=== PATIENT | female | born 1960 | race Caucasian/White ===

== ENCOUNTER 2017-02-03 23:10 | Observation (INO) ==
[2017-02-03] MEDS ORDERED: 0.9 % Sodium Chloride 1,000 ML IVC ONE (23:14)
[2017-02-04 00:46] LABS: Bilirubin,Urine Small (Negative); Blood,Urine Negative (Negative); Color,Urine Yellow (Yellow); Glucose,Urine (UA) Normal (Normal); Ketones,Urine Negative (Negative); Leukocyte Esterase,Urine Negative (Negative); Nitrite,Urine Negative (Negative); PH,Urine 5.5 pH Units (5.0-8.0); Protein,Urine Trace mg/dL (Neg-Trace); Specific Gravity,Urine 1.024 (1.010-1.025); Urobilinogen,Urine Normal (Normal)
[2017-02-04 00:46] LABS: Basophils % 0.3 %; Eosinophils # 0.3 K/mcL (0.0-0.6); Eosinophils % 2.1 %; Hemoglobin 10.7 g/dL (11.5-15.4); Immature Granulocytes % 0.6 % (0-4); Lymphocytes # 2.5 K/mcL (0.6-4.6); Lymphocytes % 20.9 %; Mean Corpuscular HGB Conc 34.5 g/dL (31.6-35.5); Mean Corpuscular Hemoglobin 32.5 pg (28.0-33.3); Mean Corpuscular Volume 94.2 fL (83.0-100.0); Mean Platelet Volume 9.1 fL (9.4-12.4); Monocytes # 1.1 K/mcL (0.0-1.3); Monocytes % 9.2 %; Platelet Count 421 K/mcL (140-400); Red Blood Count 3.29 M/mcL (3.82-4.97); Red Cell Distribution Width 12.8 % (11.5-14.5); Segmented Neutrophils % 66.9 %
[2017-02-04 00:48] LABS: Bacteria,Urine Few per hpf (None-Few); Hyaline Casts,Urine Few per lpf (None-Few); Squamous Epithelial Cell,Urine Many per lpf (None-Few)
[2017-02-04 00:49] LABS: Clarity,Urine Hazy (Clear)
[2017-02-04 00:58] LABS: Calcium 8.4 mg/dL (8.6-10.3); Potassium 2.6 mEq/L (3.5-5.1)
[2017-02-04] MEDS ORDERED: *HR* HYDROmorphone (PF) 1 MG/ML SYRINGE IVP ONE (01:28)
--- NOTE | 2017-02-04 01:49 | Emergency Department Note ---
Disposition Clinical Impression: Syncope, Hypokalemia Disposition: Admitted As Inpatient Time of Disposition: 03:12 Syncope HPI - General Chief Complaint: ED Syncope Stated Complaint: syncope Time Seen by Provider: 02/03/17 23:14 Source: patient, EMS Limitations: no limitations Nursing Notes Reviewed: Yes Vital Signs Reviewed: Yes - History of Present Illness HPI Narrative: Patient presents to the ED via EMS and was seen and evaluated immediately upon arrival. Patient is about a week status post cervical decompression for central canal stenosis with Dr. Beyer. States that she has been doing well postoperatively until today when she was standing at the kitchen sink washing her dishes and collapsed. She had no preceding or post syncopal symptoms. Family member was present and caught her so she did not completely fall. States that she did get pale but not diaphoretic. She did not have any chest pain or dizziness before or after. Upon EMS arrival, blood pressure was 70 systolic. He responded well to a fluid bolus initially and the ED. Complaining of having a flushing feeling in her head and neck at times, especially when she stands up too fast. Denies any chest pain or shortness of breath. No abdominal pain or vomiting. She does have some weakness in her upper extremities that has been ongoing since her surgery, but is improving. This is also present prior to her surgery and the reason she had her surgery. Also complaining of intermittent headaches and been ongoing as well. No acute change from baseline - Related Data Home Medications Medication Instructions Recorded Confirmed ALPRAZolam [Xanax 1 MG Tablet] 2 tab PO QID PRN 01/27/17 02/04/17 Atenolol [Tenormin] 50 mg PO BID 01/27/17 02/04/17 Enalapril/Hydrochlorothiazide 1 tab PO DAILY 01/27/17 02/04/17 [Enalapril-Hctz 5-12.5 mg Tab] Hydrocodone/Chlorphen P-Stirex 5 ml PO BID 01/27/17 02/04/17 [Tussionex Pennkinetic Susp] Lidocaine Patch [Lidoderm 5% patch] 1 patch TP DAILY 01/27/17 02/04/17 Omeprazole [PriLOSEC] 40 mg PO BID 01/27/17 02/04/17 Sertraline [Zoloft] 100 mg PO DAILY 01/27/17 02/04/17 Tramadol HCl [Ultram] 50 mg PO QID PRN 01/27/17 02/04/17 hydrOXYzine pamoate [Hydroxyzine 25 mg PO HS PRN 01/27/17 02/04/17 Pamoate] Previous Rx's Medication Instructions Recorded OxyCODONE Immed Rel [Roxicodone 5 5 mg PO Q4HR #30 tablet 01/28/17 MG] Allergies Allergy/AdvReac Type Severity Reaction Status Date / Time hydrocodone [From Vicodin] AdvReac Itching Unverified 01/27/17 10:54 Oxycodone [From Percocet] AdvReac Itching Unverified 01/27/17 10:54 All systems ED: reviewed and negative except as stated. Constitutional: Denies: fever Eyes: Denies: vision change Cardiovascular: Reports: syncope. Denies: chest pain Respiratory: Denies: dyspnea Neurological: Reports: headache, weakness Endocrine: Reports: fatigue Past Medical History - Past Medical History Attestation: Yes The following information was validated with the patient. Source: patient Medical history: Reports: hypertension Surgical history: Reports: cholecystectomy, other Psychiatric history: Reports: anxiety, depression - Social History Smoking Status: Current every day smoker Smokeless Tobacco Status: No Alcohol use: Reports: none Drug use: Reports: none Physical Exam - General Limitations: no limitations General appearance: alert, in no apparent distress - Head Head exam: atraumatic, normocephalic, normal inspection - Eye Eye exam: Present: normal appearance, PERRL, EOMI - ENT ENT exam: normal exam, normal oropharynx, mucous membranes moist - Neck Neck exam: Present: other (Well-healing anterior approach cervical decompression incision with no signs of infection or drainage, expected postop tenderness) - Chest Chest inspection: Present: normal inspection, symmetric chest wall rise - Respiratory Respiratory exam: Present: normal lung sounds bilaterally - Cardiovascular Cardiovascular exam: Present: regular rate, normal rhythm, normal heart sounds - Abdominal Exam Abdominal exam: Present: soft, Non-Tender. Absent: tenderness, distention, guarding, rebound, rigidity - Extremities Exam Extremities exam: Present: normal inspection, full ROM. Absent: tenderness, pedal edema - Neurological Exam Neurological exam: Present: alert, oriented X3, CN II-XII intact - Expanded Neurological Exam Patient oriented to: Present: person, place, time Speech: Present: fluid speech Motor strength - LUE: 5/5 Motor strength - RUE: 5/5 Motor strength - LLE: 5/5 Motor strength - RLE: 5/5 Upper motor neuron exam: gege neglect: Absent bilaterally Sensory exam upper extremity: light touch: Normal Sensory exam lower extremity: light touch: Normal Coma Scale Eye Opening: Spontaneous Coma Scale Motor Response: Obeys Commands Coma Scale Verbal Response: Oriented Coma Scale Total: 15 - Psychiatric Psychiatric exam: Present: normal affect, normal mood - Skin Skin exam: Present: warm, dry, intact, normal color Course Course Narrative: Patient presenting with syncope and hypotension. We will workup and admit Patient's workup is back and she does not want to stay. Will discuss with family and strongly recommend admission - Reevaluation(s) Reevaluation #1: Patient's labs are back. She is slightly hypokalemic. Chest x-ray is normal. Mental status is normal. After family discussion, they did convince her to stay. We will admit her to the hospital service. Patient stable. Vital Signs Temperature 98.4 F 02/03/17 23:11 Pulse Rate 64 02/03/17 23:11 Respiratory Rate 18 02/03/17 23:11 Blood Pressure 106/55 02/03/17 23:11 O2 Sat by Pulse Oximetry 100 02/03/17 23:11 Temperature 98.4 F 02/03/17 23:11 Pulse Rate 65 02/04/17 03:33 Respiratory Rate 66 02/04/17 03:33 Blood Pressure 105/59 02/04/17 03:33 O2 Sat by Pulse Oximetry 98 02/04/17 03:33 Oxygen Delivery Oxygen Delivery Room Air Syncope - Medical Records Medical records reviewed: Yes I reviewed the patient's medical records. - Lab Data Lab results reviewed: Yes I reviewed the patient's lab results. Result diagrams: 02/04/17 00:39 02/04/17 00:39 Lab Results 02/04/17 02/04/17 02/04/17 Range/Units 00:01 00:15 00:39 WBC 11.9 H (4.3-11.1) K/mcL RBC 3.29 L (3.82-4.97) M/mcL Hgb 10.7 L (11.5-15.4) g/dL Hct 31.0 L (35.3-44.9) % MCV 94.2 (83.0-100.0) fL MCH 32.5 (28.0-33.3) pg MCHC 34.5 (31.6-35.5) g/dL RDW 12.8 (11.5-14.5) % Plt Count 421 H (140-400) K/mcL MPV 9.1 L (9.4-12.4) fL Immature Gran % 0.6 (0-4) % Seg Neutrophils % 66.9 % Lymphocytes % 20.9 % Monocytes % 9.2 % Eosinophils % 2.1 % Basophils % 0.3 % Neutrophils # 8.0 (1.6-8.9) K/mcL Lymphocytes # 2.5 (0.6-4.6) K/mcL Monocytes # 1.1 (0.0-1.3) K/mcL Eosinophils # 0.3 (0.0-0.6) K/mcL Basophils # 0.0 (0.0-0.2) K/mcL Immature Plt Fraction 2.0 (1.1-6.1) % PT (9.4-12.1) Seconds INR APTT (26.0-36.0) Seconds Sodium (136-145) mEq/L Potassium (3.5-5.1) mEq/L Chloride (98-107) mEq/L Carbon Dioxide (23-29) mEq/L BUN (6-20) mg/dL Creatinine (0.60-1.20) mg/dL Est GFR ( Amer) (> 60) Est GFR (Non-Af Amer) (> 60) BUN/Creatinine Ratio (6-26) Glucose (70-105) mg/dL Calculated Osmolality (280-300) Lactic Acid (0.5-2.2) mmol/L Calcium (8.6-10.3) mg/dL Troponin I (< 0.04) ng/mL Urine Color Yellow (Yellow) Urine Clarity Hazy A (Clear) Urine pH 5.5 (5.0-8.0) pH Units Ur Specific [place] 1.024 (1.010-1.025) Urine Protein Trace (Neg-Trace) mg/dL Urine Glucose (UA) Normal (Normal) mg/dL Urine Ketones Negative (Negative) mg/dL Urine Blood Negative (Negative) Urine Nitrite Negative (Negative) Urine Bilirubin Small H (Negative) Urine Urobilinogen Normal (Normal) mg/dL Ur Leukocyte Esterase Negative (Negative) Urine Microscopic RBC 5-15 H (0-3) per hpf Ur Squamous Epith Cells Many H (None-Few) per lpf Urine Bacteria Few (None-Few) per hpf Hyaline Casts Few (None-Few) per lpf Specimen Rejected Miscellaneous 02/04/17 02/04/17 02/04/17 Range/Units 00:39 00:39 00:39 WBC (4.3-11.1) K/mcL RBC (3.82-4.97) M/mcL Hgb (11.5-15.4) g/dL Hct (35.3-44.9) % MCV (83.0-100.0) fL MCH (28.0-33.3) pg MCHC (31.6-35.5) g/dL RDW (11.5-14.5) % Plt Count (140-400) K/mcL MPV (9.4-12.4) fL Immature Gran % (0-4) % Seg Neutrophils % % Lymphocytes % % Monocytes % % Eosinophils % % Basophils % % Neutrophils # (1.6-8.9) K/mcL Lymphocytes # (0.6-4.6) K/mcL Monocytes # (0.0-1.3) K/mcL Eosinophils # (0.0-0.6) K/mcL Basophils # (0.0-0.2) K/mcL Immature Plt Fraction (1.1-6.1) % PT 13.1 H (9.4-12.1) Seconds INR 1.2 APTT 23.1 L (26.0-36.0) Seconds Sodium 138 (136-145) mEq/L Potassium 2.6 L (3.5-5.1) mEq/L Chloride 102 (98-107) mEq/L Carbon Dioxide 23 (23-29) mEq/L BUN 17 (6-20) mg/dL Creatinine 1.34 H (0.60-1.20) mg/dL Est GFR ( Amer) 49 L (> 60) Est GFR (Non-Af Amer) 41 L (> 60) BUN/Creatinine Ratio 13 (6-26) Glucose 117 H (70-105) mg/dL Calculated Osmolality 289 (280-300) Lactic Acid 1.0 (0.5-2.2) mmol/L Calcium 8.4 L (8.6-10.3) mg/dL Troponin I (< 0.04) ng/mL Urine Color (Yellow) Urine Clarity (Clear) Urine pH (5.0-8.0) pH Units Ur Specific [place] (1.010-1.025) Urine Protein (Neg-Trace) mg/dL Urine Glucose (UA) (Normal) mg/dL Urine Ketones (Negative) mg/dL Urine Blood (Negative) Urine Nitrite (Negative) Urine Bilirubin (Negative) Urine Urobilinogen (Normal) mg/dL Ur Leukocyte Esterase (Negative) Urine Microscopic RBC (0-3) per hpf Ur Squamous Epith Cells (None-Few) per lpf Urine Bacteria (None-Few) per hpf Hyaline Casts (None-Few) per lpf Specimen Rejected 02/04/17 Range/Units 00:39 WBC (4.3-11.1) K/mcL RBC (3.82-4.97) M/mcL Hgb (11.5-15.4) g/dL Hct (35.3-44.9) % MCV (83.0-100.0) fL MCH (28.0-33.3) pg MCHC (31.6-35.5) g/dL RDW (11.5-14.5) % Plt Count (140-400) K/mcL MPV (9.4-12.4) fL Immature Gran % (0-4) % Seg Neutrophils % % Lymphocytes % % Monocytes % % Eosinophils % % Basophils % % Neutrophils # (1.6-8.9) K/mcL Lymphocytes # (0.6-4.6) K/mcL Monocytes # (0.0-1.3) K/mcL Eosinophils # (0.0-0.6) K/mcL Basophils # (0.0-0.2) K/mcL Immature Plt Fraction (1.1-6.1) % PT (9.4-12.1) Seconds INR APTT (26.0-36.0) Seconds Sodium (136-145) mEq/L Potassium (3.5-5.1) mEq/L Chloride (98-107) mEq/L Carbon Dioxide (23-29) mEq/L BUN (6-20) mg/dL Creatinine (0.60-1.20) mg/dL Est GFR ( Amer) (> 60) Est GFR (Non-Af Amer) (> 60) BUN/Creatinine Ratio (6-26) Glucose (70-105) mg/dL Calculated Osmolality (280-300) Lactic Acid (0.5-2.2) mmol/L Calcium (8.6-10.3) mg/dL Troponin I < 0.03 (< 0.04) ng/mL Urine Color (Yellow) Urine Clarity (Clear) Urine pH (5.0-8.0) pH Units Ur Specific [place] (1.010-1.025) Urine Protein (Neg-Trace) mg/dL Urine Glucose (UA) (Normal) mg/dL Urine Ketones (Negative) mg/dL Urine Blood (Negative) Urine Nitrite (Negative) Urine Bilirubin (Negative) Urine Urobilinogen (Normal) mg/dL Ur Leukocyte Esterase (Negative) Urine Microscopic RBC (0-3) per hpf Ur Squamous Epith Cells (None-Few) per lpf Urine Bacteria (None-Few) per hpf Hyaline Casts (None-Few) per lpf Specimen Rejected - Radiology Data Radiology results reviewed: Yes I reviewed the patient's radiology results. - EKG Data EKG attestation: Yes I reviewed and interpreted this EKG. EKG results narrative: Sinus rhythm, rate 63, AR interval 203, QRS 108, QTC 472, borderline left axis deviation, borderline prolonged QT interval. No acute ischemic changes Attestation Statement - Attestation Attestation: I, Jack Islas MD, personally evaluated this patient and discussed their management with the resident physician. I reviewed the resident's note and agree with the documented findings, medical decision making, and plan of care. 56-year-old female presents to the emergency department with a complaint of a syncopal episode shortly prior to arrival. Patient was standing at the sink washing dishes when she had a sudden loss of consciousness. Patient had what she describes as a head phillips and she leaned over leaning on the sink and then stood up. Daughter was right beside her and states that when she stood up she became very pale and her eyes rolled back in her head and she collapsed. Daughter caught her and lowered her to the floor. She did not fall or injure herself. Patient is one week status post cervical spine surgery. She denies any chest pain or palpitations. She does not remember the incident. Family reports that she was completely unresponsive for at least 2 minutes and then seemed confused and disoriented for about 10 or 15 minutes. On examination patient is a well-developed well-nourished female in no acute distress. She is alert and oriented 3. There is no cyanosis or diaphoresis. Rest sounds are clear and equal bilaterally. Heart regular rate and rhythm. Abdomen is soft and nontender with normal bowel sounds. No gross focal neurological deficits. Labs reviewed. Hypokalemia. Chest x-ray negative. EKG shows a normal sinus rhythm. She does have prolonged QT. No arrhythmias on the cardiac catheterization technician. The emergency department. The hospitalist, Dr. Hayden, was consulted and accepted admission of the patient.
[2017-02-04 02:18] LABS: Activated Partial Thrombo Time 23.1 Seconds (26.0-36.0); INR 1.2; Prothrombin Time 13.1 Seconds (9.4-12.1)
[2017-02-04] MEDS ORDERED: Nicotine 21 MG PATCH.TD24 TD STA (03:13)
[2017-02-04] MEDS ORDERED: Naloxone 0.4 MG/ML INJ IVP PRN (08:33)
--- NOTE | 2017-02-04 08:41 | Internal Med History&Physical ---
Date of Encounter: 02/08/17 Time of Encounter: 08:40 Assessment and Plan (1) Syncope Status: Acute 56/female Multiple comorbidities. Admitted with syncopal episode. Has a recent surgery for cervical spine. Total down time was less than 3 minutes. She is aware of the surrounding during the syncopal episode. Plan: Admit as observation. IV fluids normal saline 70 mL per hour. Noted that potassium was replaced. We will recheck labs. We will get CT head without contrast as patient had a vigorous head movements during this episode Decision regarding imaging of the spine: As per spine surgery. We will get physical therapy/occupational therapy evaluation. I spoke to Dr. Beyer who has done surgery one week back as per the patient's request. Qualifiers: Syncope type: unspecified Qualified Code(s): R55 - Syncope and collapse (2) Hypokalemia Status: Acute Potassium replaced. We will follow labs (3) Cervical stenosis of spinal canal Status: Chronic Status post surgery for cervical stenosis of the spinal canal. The surgery was done one week ago. (4) DVT prophylaxis Status: Acute Internal Medicine - H&P: HPI Chief complaint: Syncopal episode Admitted From: Emergency Dept Plans for Post Hospital Care: Home History of present illness: PCP: No PCP Brief history of past medical illness: Anxiety, hypertension, GERD, recent cervical spine surgery by Dr. Beyer less than 1 week ago. History of present medical illness: After dinner in the evening patient was standing in the kitchen and was working on her [place] at that time patient had a sudden episode of a loss of consciousness for less than 10 seconds. She did not actually had a fall. Patient's daughter and other family members prevented by holding the patient. Patient did not touch any of her body part to the floor. In view of this sudden episode of os of consciousness squad was called for further evaluation. When squad came to evaluate the patient it was noted that patient's her pressure was 70 systolic. Patient was pale as per the squad. Patient was brought to this hospital emergency department for further evaluation. Patient tells me that the total down time was less than 3 minutes. The patient was well oriented and aware during this time what was happening surrounding to her. Workup in the emergency room: Patient was evaluated in the emergency room. Noted that her potassium was 2.6 and patient was dehydrated. Reason for admission: Syncopal episode in a patient who has recently undergone cervical spine surgery. Family history: Noncontributory Past Med Surg Social Fam HX - Past Medical History Medical history: hypertension Psychiatric history: anxiety, depression - Past Surgical History Surgical History: cholecystectomy, other - Social History Smoking Status: Current every day smoker Packs per day: 1/2-1 Smokeless Tobacco Status: No Alcohol use: none Drug use: none - Family History Mother Adopted: [place]: Shanel Hewitt Family Member Ethnicity: Non- Living Status: Still Living Hx Family Cardiac Disorders: No Hx Family Respiratory Disorders: No Hx Family Cancer: No Hx Family GI Disorders: No Hx Family Genitourinary Disorders: No Hx Family Endocrine Disorder: No Hx Family Musculoskeletal Disorders: No Hx Family Neuromuscular Disorders: No Hx Family Neurologic Disorders: No Hx Family HEENT Disorders: No Hx Family Autoimmune Disorders: No Hx Family Reproductive Disorders: No Hx Family Psychosocial Disorders: No Hx Family Medical Disorders: No Internal Medicine - H&P: Meds ALPRAZolam [Xanax 1 MG Tablet] 2 tab PO QID PRN 01/27/17 [History] Atenolol [Tenormin] 50 mg PO BID 01/27/17 [History] Enalapril/Hydrochlorothiazide [Enalapril-Hctz 5-12.5 mg Tab] 1 tab PO DAILY [History] Hydrocodone/Chlorphen P-Stirex [Tussionex Pennkinetic Susp] 5 ml PO BID [History] Lidocaine Patch [Lidoderm 5% patch] 1 patch TP DAILY 01/27/17 [History] Omeprazole [PriLOSEC] 40 mg PO BID 01/27/17 [History] Sertraline [Zoloft] 100 mg PO DAILY 01/27/17 [History] Tramadol HCl [Ultram] 50 mg PO QID PRN 01/27/17 [History] hydrOXYzine pamoate [Hydroxyzine Pamoate] 25 mg PO HS PRN 01/27/17 [History] Aspirin [Lo-Dose Aspirin EC] 81 mg PO DAILY #30 tablet. 02/06/17 [Rx] Nicotine Patch [Nicoderm] 21 mg TD DAILY #10 patch.td24 02/06/17 [Rx] 3 Allergy/AdvReac Type Severity Reaction Status Date / Time hydrocodone [From Vicodin] AdvReac Itching Unverified 01/27/17 10:54 Oxycodone [From Percocet] AdvReac Itching Unverified 01/27/17 10:54 All Systems PM: A 10-system review of systems was performed and is negative for pertinent findings except as documented above in the HPI. - Constitutional Constitutional: no chills, no fever(s), no night sweats - EENT Eyes: no change in vision, no discharge, no pain, no photophobia Ears: no ear discharge, no ear pain, no tinnitus Nose, mouth and throat: no dysphagia, no nasal discharge, no neck pain, no sore throat - Cardiovascular Cardiovascular ROS IM: no chest pain, no diaphoresis, no dyspnea, no lightheadedness, no palpitations, no syncope - Respiratory Respiratory: no cough, no dyspnea, no wheezing, no excessive phlegm production - Gastrointestinal Gastrointestinal: no abdominal pain, no diarrhea, no hematemesis, no hematochezia, no melena, no nausea, no vomiting - Genitourinary Genitourinary: no change in urinary stream, no dysuria, no flank pain, no hematuria - Musculoskeletal Musculoskeletal ROS IM: no numbness, no tingling - Integumentary Integumentary IM: no rash, no unusual bruising - Neurological Neurological ROS: abnormal gait, disequilibrium, dizziness, no confusion, no convulsions, no focal weakness, no numbness, no tingling, no tremor(s) - Hematologic/Lymphatic Hematologic/Lymphatic: no easy bruising - Constitutional Vitals: Temp Pulse Resp BP Pulse Ox 97.8 F 72 16 112/64 96 02/04/17 06:46 02/04/17 06:46 02/04/17 06:46 02/04/17 06:46 02/04/17 06:46 General appearance: Present: A&O X 3, pleasant, no acute distress, answers questions appropriately - Head Head exam: Present: atraumatic, normocephalic - Eye Eye exam: Present: PERRL, conjuntiva pink, sclera anicteric Pupils: Present: PERRL - Neck Neck exam general surgery: Present: supple, trachea midline. Absent: lymphadenopathy - Respiratory Respiratory exam: Present: CTAB. Absent: accessory muscle use, rales, rhonchi, wheezes - Cardiovascular Cardiovascular exam: Present: RRR, +S1, +S2. Absent: diastolic murmur, gallop, rubs, systolic murmur - GI/Abdominal GI/Abdominal exam: Present: normal bowel sounds, soft, no peritoneal signs. Absent: distended, tenderness - Extremities Exam Extremities exam: Present: warm, radial pulses palpable and symmetrical. Absent : calf tenderness, cyanotic, pedal edema - Neurological Exam Neurological exam: Present: CN II-XII intact, oriented X3, no focal deficits. Absent: pronater drift, facial droop, speech deficit - Skin Skin exam: Present: dry, intact Internal Med - H&P Results - Labs CBC & Chem 7: 02/06/17 05:01 02/06/17 05:01
[2017-02-04] MEDS: 0.9 % Sodium Chloride 1,000 ML IVC SCH (10:00)
[2017-02-04] MEDS ORDERED: ALPRAZolam 1 MG TABLET PO PRN (11:10)
[2017-02-04] MEDS: *HR* HYDROmorphone (PF) 1 MG/ML SYRINGE IVP PRN ×2 (11:41→19:33)
[2017-02-04] MEDS ORDERED: ALPRAZolam 1 MG TABLET PO STA (15:08)
[2017-02-04] MEDS ORDERED: Saline Nasal Spray 44 ML BOTTLE NS PRN (15:08)
[2017-02-04 16:10] LABS: BUN/Creatinine Ratio 18 (6-26); Blood Urea Nitrogen 10 mg/dL (6-20); Calcium 8.9 mg/dL (8.6-10.3); Carbon Dioxide 25 mEq/L (23-29); Chloride 106 mEq/L (98-107); Glucose 96 mg/dL (70-105); Osmolality,Calculated 287 (280-300); Potassium 3.1 mEq/L (3.5-5.1); Sodium 139 mEq/L (136-145); eGFR For African Americans > 60 (> 60); eGFR For Non-African Americans > 60 (> 60)
[2017-02-04] MEDS: ALPRAZolam 1 MG TABLET PO PRN (19:33)
[2017-02-05] MEDS: 0.9 % Sodium Chloride 1,000 ML IVC SCH (01:17)
[2017-02-05] MEDS: *HR* HYDROmorphone (PF) 1 MG/ML SYRINGE IVP PRN ×8 (03:47→23:13)
[2017-02-05] MEDS: Nicotine 21 MG PATCH.TD24 TD SCH ×2 (04:59→07:55)
[2017-02-05 05:12] LABS: Alanine Aminotransferase 13 Units/L (7-52); Albumin 3.5 g/dL (3.5-5.7); Albumin/Globulin Ratio 1.4 (1.1-2.2); Alkaline Phosphatase 89 Units/L (34-104); Aspartate Amino Transferase 14 Units/L (13-39); BUN/Creatinine Ratio 17 (6-26); Bilirubin,Total 0.2 mg/dL (0.3-1.0); Blood Urea Nitrogen 8 mg/dL (6-20); Calcium 8.8 mg/dL (8.6-10.3); Carbon Dioxide 28 mEq/L (23-29); Chloride 109 mEq/L (98-107); Chol/HDL Ratio 5.7 (0-4.9); Cholesterol 164 mg/dL (< 200); Globulin 2.5 g/dL (2.4-3.5); Glucose 122 mg/dL (70-105); HDL Cholesterol 29 mg/dL (40-59); LDL Cholesterol,Calculated 107 mg/dL (0-99); Magnesium 1.5 mg/dL (1.6-2.6); Osmolality,Calculated 294 (280-300); Phosphorous 2.7 mg/dL (2.7-4.5); Potassium 3.2 mEq/L (3.5-5.1); Sodium 142 mEq/L (136-145); Triglycerides 139 mg/dL (< 150); eGFR For African Americans > 60 (> 60); eGFR For Non-African Americans > 60 (> 60)
[2017-02-05 05:59] LABS: INR 1.1; Prothrombin Time 11.9 Seconds (9.4-12.1)
[2017-02-05 06:02] LABS: Activated Partial Thrombo Time 30.8 Seconds (26.0-36.0)
[2017-02-05 06:06] LABS: Basophils % 0.5 %; Eosinophils # 0.3 K/mcL (0.0-0.6); Eosinophils % 3.6 %; Hematocrit 29.3 % (35.3-44.9); Hemoglobin 10.1 g/dL (11.5-15.4); Immature Granulocytes % 0.2 % (0-4); Lymphocytes # 3.3 K/mcL (0.6-4.6); Lymphocytes % 40.5 %; Mean Corpuscular HGB Conc 34.5 g/dL (31.6-35.5); Mean Corpuscular Hemoglobin 33.1 pg (28.0-33.3); Mean Corpuscular Volume 96.1 fL (83.0-100.0); Mean Platelet Volume 9.4 fL (9.4-12.4); Monocytes # 0.7 K/mcL (0.0-1.3); Monocytes % 9.2 %; Neutrophils # 3.7 K/mcL (1.6-8.9); Platelet Count 391 K/mcL (140-400); Red Blood Count 3.05 M/mcL (3.82-4.97); Red Cell Distribution Width 13.5 % (11.5-14.5)
[2017-02-05] MEDS: ALPRAZolam 1 MG TABLET PO PRN ×2 (10:18→17:32)
--- NOTE | 2017-02-05 17:51 | Internal Med Progress Note ---
Date of Encounter: 02/08/17 Time of Encounter: 17:51 - Assessment and plan (1) Syncope Status: Acute Assessment and plan: Patient was admitted for a syncopal episode. Echocardiogram: Ejection fraction more than 50%. No regional wall motion abnormality. CT head: No acute process. Carotid ultrasound: Bilateral stenosis between 60-79%. I spoke with Dr. Lake from vascular surgery. He recommended outpatient follow-up. We will start patient on baby aspirin. I discussed this case with Dr. Beyer. From Dr. Beyer's opinion patient can be on baby aspirin Qualifiers: Syncope type: unspecified Qualified Code(s): R55 - Syncope and collapse (2) Hypokalemia Status: Acute Assessment and plan: In spite of replacing potassium orally patient is still hypokalemic. We will replace potassium intravenously/orally. We will recheck potassium tomorrow morning. (3) Cervical stenosis of spinal canal Status: Chronic Assessment and plan: Status post surgery for cervical spinal canal stenosis. (4) DVT prophylaxis Status: Acute Assessment and plan: Will continue same - Subjective Interval history: Patient seen and examined. Chart reviewed. Patient is comfortably lying in bed. Patient does not have any complaints. Patient's daughter at bedside. - Constitutional Vitals: Temp Pulse Resp BP Pulse Ox 98.2 F 76 18 124/66 98 02/05/17 15:03 02/05/17 15:03 02/05/17 15:03 02/05/17 15:03 02/05/17 15:03 General appearance: Present: A&O X 3, pleasant, no acute distress, answers questions appropriately - Head Head exam: Present: atraumatic, normocephalic - Eye Eye exam: Present: PERRL, conjuntiva pink, sclera anicteric Pupils: Present: PERRL - Neck Neck exam general surgery: Present: supple, trachea midline. Absent: lymphadenopathy - Respiratory Respiratory exam: Present: CTAB. Absent: accessory muscle use, rales, rhonchi, wheezes - Cardiovascular Cardiovascular exam: Present: RRR, +S1, +S2. Absent: diastolic murmur, gallop, rubs, systolic murmur - GI/Abdominal GI/Abdominal exam: Present: normal bowel sounds, soft, no peritoneal signs. Absent: distended, tenderness - Extremities Exam Extremities exam: Present: warm, radial pulses palpable and symmetrical. Absent : calf tenderness, cyanotic, pedal edema - Neurological Exam Neurological exam: Present: CN II-XII intact, oriented X3, no focal deficits. Absent: pronater drift, facial droop, speech deficit - Skin Skin exam: Present: dry, intact Internal Medicine: Result - Labs CBC & Chem 7: 02/06/17 05:01 02/06/17 05:01 Labs: Short CBC 02/05/17 Range/Units 04:25 WBC 8.1 (4.3-11.1) K/mcL Hgb 10.1 L (11.5-15.4) g/dL Hct 29.3 L (35.3-44.9) % Plt Count 391 (140-400) K/mcL Neutrophils # 3.7 (1.6-8.9) K/mcL BMP 02/05/17 04:25 Sodium 142 Potassium 3.2 L Chloride 109 H Carbon Dioxide 28 BUN 8 Creatinine 0.46 L Glucose 122 H Calcium 8.8 Cardiac Enzymes 02/04/17 Range/Units 21:29 Troponin I < 0.03 (< 0.04) ng/mL Liver Function 02/05/17 Range/Units 04:25 Total Bilirubin 0.2 L (0.3-1.0) mg/dL AST 14 (13-39) Units/L ALT 13 (7-52) Units/L Alkaline Phosphatase 89 (34-104) Units/L Albumin 3.5 (3.5-5.7) g/dL - ABG Interpretation ABG results: PT/INR, D-dimer PT 11.9 Seconds (9.4-12.1) 02/05/17 04:25 - Impressions Impressions Echocardiogram 02/05/17 15:11 Impressions: LVEF 60%. Normal LV chamber size, wall thickness and function. Mild left ventricular diastolic dysfunction. Atypical septal motion of unclear etiology. Normal right ventricular structure and function. No evidence of pulmonary hypertension. No significant valvular dysfunction. Left Ventricular Wall Motion: Rest Echo Findings All wall segments showed normal motion. Findings: Study Quality * Technically adequate exam. ECG Findings * Normal sinus rhythm. Left Ventricle * LVEF 60%. * Normal LV chamber size, wall thickness and function. * Mild left ventricular diastolic dysfunction. * Atypical septal motion of unclear etiology. Right Ventricle * Normal right ventricular structure and function. Left Atrium * Mild to moderately dilated left atrium. Right Atrium * Mild to moderately dilated right atrium. Interatrial Septum * Interatrial septum not well evaluated. Aortic Valve * Trileaflet aortic valve with normal function. * No aortic regurgitation. * No aortic stenosis. Mitral Valve * Normal mitral valve structure and function. * No mitral stenosis. * Trace mitral regurgitation. Tricuspid Valve * Normal tricuspid valve structure and function. * Trace tricuspid regurgitation. * No evidence of pulmonary hypertension. Pulmonic Valve * Normal pulmonic valve structure and function. * No pulmonic regurgitation. Aorta * Normally sized aortic root. Pericardium * The pericardium appears normal. IVC * Normal IVC dimensions and inspiratory collapse. Pulmonary Artery * Normal visualized portions of the main pulmonary artery. - VTE Documentation of Mechanical Device: Intermittent pneumatic compression device Consult Discharge Plan - Plan Additional Instructions: Follow up with [facility] as scheduled, follow up with Dr Beyer as scheduled. Take medications as prescribed. Go to ED if symptoms return. Referrals: Payton Reddy MD [Partnered Physician] - 02/11/17 9:00 am Gurmeet Aggarwal MD [Partnered Physician] - (Need 1 week followup; Office closed for holiday @ time of call; Web request placed.) Babak Villeda [Primary Care Provider] - (Office closed. No VM left. Pt states she has an appointment on 03/12/17. Wanting to move appointment closer. ) Prescriptions: Aspirin [Lo-Dose Aspirin EC] 81 mg PO DAILY #30 tablet. Nicotine Patch [Nicoderm] 21 mg TD DAILY #10 patch.[id number]
[2017-02-06] MEDS: *HR* HYDROmorphone (PF) 1 MG/ML SYRINGE IVP PRN ×4 (01:26→10:41)
[2017-02-06 05:12] LABS: Basophils % 0.5 %; Eosinophils # 0.3 K/mcL (0.0-0.6); Eosinophils % 4.1 %; Hematocrit 29.4 % (35.3-44.9); Immature Granulocytes % 0.3 % (0-4); Lymphocytes # 3.3 K/mcL (0.6-4.6); Lymphocytes % 45.1 %; Mean Corpuscular Hemoglobin 32.8 pg (28.0-33.3); Mean Corpuscular Volume 96.4 fL (83.0-100.0); Monocytes # 0.6 K/mcL (0.0-1.3); Monocytes % 8.2 %; Neutrophils # 3.1 K/mcL (1.6-8.9); Platelet Count 408 K/mcL (140-400); Red Blood Count 3.05 M/mcL (3.82-4.97); Red Cell Distribution Width 13.5 % (11.5-14.5); Segmented Neutrophils % 41.8 %
[2017-02-06 05:29] LABS: BUN/Creatinine Ratio 15 (6-26); Blood Urea Nitrogen 6 mg/dL (6-20); Calcium 8.9 mg/dL (8.6-10.3); Carbon Dioxide 31 mEq/L (23-29); Chloride 106 mEq/L (98-107); Glucose 94 mg/dL (70-105); Osmolality,Calculated 287 (280-300); Potassium 3.9 mEq/L (3.5-5.1); Sodium 140 mEq/L (136-145); eGFR For African Americans > 60 (> 60); eGFR For Non-African Americans > 60 (> 60)
[2017-02-06] MEDS: Nicotine 21 MG PATCH.TD24 TD SCH (07:26)
[2017-02-06 08:49] VITALS: BP 161/85
--- NOTE | 2017-02-06 10:00 | Discharge Summary ---
Date of Encounter: 02/08/17 Time of Encounter: 09:57 - Discharge Diagnosis (1) Syncope Priority: Primary Status: Acute Qualifiers: Syncope type: unspecified Qualified Code(s): R55 - Syncope and collapse (2) Hypokalemia Priority: Primary Status: Acute (3) Cervical stenosis of spinal canal Priority: Secondary Status: Chronic (4) DVT prophylaxis Priority: Secondary Status: Acute - Discharge Medications Prescriptions: Aspirin [Lo-Dose Aspirin EC] 81 mg PO DAILY #30 tablet. Nicotine Patch [Nicoderm] 21 mg TD DAILY #10 patch.td24 Home Medications: ALPRAZolam [Xanax 1 MG Tablet] 2 tab PO QID PRN 01/27/17 [History] Atenolol [Tenormin] 50 mg PO BID 01/27/17 [History] Enalapril/Hydrochlorothiazide [Enalapril-Hctz 5-12.5 mg Tab] 1 tab PO DAILY [History] Hydrocodone/Chlorphen P-Stirex [Tussionex Pennkinetic Susp] 5 ml PO BID [History] Lidocaine Patch [Lidoderm 5% patch] 1 patch TP DAILY 01/27/17 [History] Omeprazole [PriLOSEC] 40 mg PO BID 01/27/17 [History] Sertraline [Zoloft] 100 mg PO DAILY 01/27/17 [History] Tramadol HCl [Ultram] 50 mg PO QID PRN 01/27/17 [History] hydrOXYzine pamoate [Hydroxyzine Pamoate] 25 mg PO HS PRN 01/27/17 [History] Aspirin [Lo-Dose Aspirin EC] 81 mg PO DAILY #30 tablet. 02/06/17 [Rx] Nicotine Patch [Nicoderm] 21 mg TD DAILY #10 patch.td24 02/06/17 [Rx] Allergies/Adverse Reactions: 3 Allergy/AdvReac Type Severity Reaction Status Date / Time hydrocodone [From Vicodin] AdvReac Itching Unverified 01/27/17 10:54 Oxycodone [From Percocet] AdvReac Itching Unverified 01/27/17 10:54 Procedures/tests Complete & Pending: Procedures Performed prior 72 hours Category Date Time Status CT head/brain wo con [CT] Routine Cat Scan 02/04/17 08:38 Completed EV carotid duplex imaging BI Routine Y 02/05/17 15:10 Completed EV echocardiogram Routine Y 02/05/17 15:11 Completed Date of admission: 02/04/17 03:28 Primary care physician: Babak Villeda Consults: 02/04/17 04:14 Consult to Wheat Washer [CONS] Routine Reason for SW Consult: possible need for ECF or HH 02/04/17 08:36 Consult to Occupational Therapy [CONS] Routine Comment: Evaluate, develop and implement POC Reason for Consult: syncopal eisode in patient who had recent cervical spine surgery Consult to Physical Therapy [CONS] Routine Comment: Evaluate, develop and implement POC Reason for Consult: syncopal eisode in patient who had recent cervical spine surgery 02/04/17 08:39 Consult to Orthopedic Surgery [CONS] Routine Consulting Provider: [facility] Reason for Consult: syncopal eisode in patient who had recent cervical spine surgery. spoke with Dr Wolff. Call Completed: Yes Discharging clinician: Rudy Chaidez - Patient Status Disposition: Home, Self-Care Condition: Good Functional capacity at discharge: independent ambulation Overall status at discharge: patient is progressing back to baseline - Discharge Instructions Follow Up With: Payton Reddy MD [Partnered Physician] - 02/11/17 9:00 am Gurmeet Aggarwal MD [Partnered Physician] - (Need 1 week followup; Office closed for holiday @ time of call; Web request placed.) Babak Villeda [Primary Care Provider] - (Office closed. No VM left. Pt states she has an appointment on 03/12/17. Wanting to move appointment closer. ) Additional Instructions: Follow up with [facility] as scheduled, follow up with Dr Wolff as scheduled. Take medications as prescribed. Go to ED if symptoms return. - Diet and Activity Activity: increase activity as tolerated Diet: low fat, low cholesterol Interval History: PCP: No PCP Brief history of past medical illness: Anxiety, hypertension, GERD, recent cervical spine surgery by Dr. Wolff less than 1 week ago. History of present medical illness: After dinner in the evening patient was standing in the kitchen and was working on her Fern at that time patient had a sudden episode of a loss of consciousness for less than 10 seconds. She did not actually had a fall. Patient's daughter and other family members prevented by holding the patient. Patient did not touch any of her body part to the floor. In view of this sudden episode of os of consciousness squad was called for further evaluation. When squad came to evaluate the patient it was noted that patient's her pressure was 70 systolic. Patient was pale as per the squad. Patient was brought to this hospital emergency department for further evaluation. Patient tells me that the total down time was less than 3 minutes. The patient was well oriented and aware during this time what was happening surrounding to her. Workup in the emergency room: Patient was evaluated in the emergency room. Noted that her potassium was 2.6 and patient was dehydrated. Reason for admission: Syncopal episode in a patient who has recently undergone cervical spine surgery. Hospital course: Ms. Torres is a 56 year old female who was hospitalized. Spine surgery was called and they said there is nothing abnormal from post surgical point of view. CT head was negative. Echocardiogram was normal limits. Bilateral carotid artery Doppler shows it to 79% stenosis. Case discussed with the vascular surgery. They recommended baby aspirin and follow up as outpatient. Informed spine surgery regarding this new antiplatelet agent in a postsurgical state. Spine surgeries is no contraindication from their side to start baby aspirin. Noted that patient has a drop in hemoglobin and she prefers to get that workup as outpatient. This is being the [place] time patient would like to prefer to go home and stay with her family and we will follow-up with the primary care for anemia workup. All questions answered at the time of examination/discharge. I have given patient pain medication till she sees her change control specialist as outpatient. - Time Spent with Patient Total time spent providing and/or coordinating discharge services: - Constitutional Vitals: Temp Pulse Resp BP Pulse Ox 98.0 F 69 18 161/85 96 02/06/17 08:48 02/06/17 08:48 02/06/17 08:48 02/06/17 08:48 02/06/17 04:32 General appearance: Present: A&O X 3, pleasant, no acute distress, answers questions appropriately - Head Head exam: Present: atraumatic, normocephalic - Eye Eye exam: Present: PERRL, conjuntiva pink, sclera anicteric Pupils: Present: PERRL - Neck Neck exam general surgery: Present: supple, trachea midline. Absent: lymphadenopathy - Respiratory Respiratory exam: Present: CTAB. Absent: accessory muscle use, rales, rhonchi, wheezes - Cardiovascular Cardiovascular exam: Present: RRR, +S1, +S2. Absent: diastolic murmur, gallop, rubs, systolic murmur - GI/Abdominal GI/Abdominal exam: Present: normal bowel sounds, soft, no peritoneal signs. Absent: distended, tenderness - Extremities Exam Extremities exam: Present: warm, radial pulses palpable and symmetrical. Absent : calf tenderness, cyanotic, pedal edema - Neurological Exam Neurological exam: Present: CN II-XII intact, oriented X3, no focal deficits. Absent: pronater drift, facial droop, speech deficit - Skin Skin exam: Present: dry, intact - VTE Documentation of Mechanical Device: Intermittent pneumatic compression device
== END 2017-02-06 12:31 | disposition home or self-care (01) ==
LOC: EMEROO 23:10 → 3NENU 23:10
PROVIDERS: ADMIT Internal Medicine; ATTEND Family Medicine

== ENCOUNTER 2017-09-08 19:23 | Observation (INO) ==
[2017-09-08] MEDS ORDERED: 0.9 % Sodium Chloride 1,000 ML IVC ONE ×2 (20:06→21:14)
[2017-09-08 20:12] LABS: Basophils # 0.1 K/mcL (0.0-0.2); Basophils % 0.5 %; Eosinophils # 0.6 K/mcL (0.0-0.6); Eosinophils % 5.8 %; Hematocrit 32.9 % (35.3-44.9); Hemoglobin 11.3 g/dL (11.5-15.4); Immature Granulocytes % 0.4 % (0-4); Lymphocytes # 2.6 K/mcL (0.6-4.6); Lymphocytes % 26.6 %; Mean Corpuscular HGB Conc 34.3 g/dL (31.6-35.5); Mean Corpuscular Hemoglobin 31.8 pg (28.0-33.3); Mean Corpuscular Volume 92.7 fL (83.0-100.0); Mean Platelet Volume 9.1 fL (9.4-12.4); Monocytes % 9.6 %; Neutrophils # 5.7 K/mcL (1.6-8.9); Platelet Count 294 K/mcL (140-400); Red Blood Count 3.55 M/mcL (3.82-4.97); Red Cell Distribution Width 13.4 % (11.5-14.5); Segmented Neutrophils % 57.1 %
--- NOTE | 2017-09-08 20:22 | Emergency Department Note ---
Disposition Clinical Impression: Hypokalemia, Acute kidney injury, Hyponatremia, Hypomagnesemia Syncope Qualifiers: Syncope type: unspecified Qualified Code(s): R55 - Syncope and collapse Hypotension Qualifiers: Hypotension type: unspecified hypotension type Qualified Code(s): I95.9 - Hypotension, unspecified Disposition: Admitted As Inpatient Condition: Good Time of Disposition: 21:58 General Adult HPI - General Chief complaint: ED Dizziness Stated complaint: dizzy spells/ fall it head Time Seen by Provider: 09/08/17 19:39 Source: patient Limitations: no limitations Nursing Notes Reviewed: Yes Vital Signs Reviewed: Yes - History of Present Illness HPI Narrative: 57-year-old female history of hypertension, smoking with a history of bilateral carotid blockage of 65 to 75% presents emergency department with a complaint of lightheadedness and recent fall. Patient presents with her daughter who she lives with and states she has been having issues with dizziness and syncope since January. At that time she was admitted and evaluated were the blockage in her carotid was discovered. She also had echocardiogram performed with the EF 60% with some mild diastolic dysfunction. She is on aspirin. She states yesterday she had a syncopal episode after using the restroom, she stood up to pull her pants and flushing toilet when she states feeling woozy and weaken the legs and fell. She does not recall how she felt but does remember landing on top of the toilet brush and the plunger on the back, he also complains of hitting her head behind the right ear. Daughter states she has a history of frequent falls at home and she typically ask very confused afterwards and sometimes a little combative. She denies a history of epilepsy or seizures. She does not take any anticoagulants. She denies any recent fever or chills or illness. Denies any G.I. bleed symptoms. Complaining of some mild back pain as she believes she did land on her tailbone. Her prior admission she was treated for anemia and hypokalemia Pain Scale: 9 - Related Data Home Medications Medication Instructions Recorded Confirmed ALPRAZolam [Xanax 1 MG Tablet] 2 tab PO QID PRN 01/27/17 09/08/17 Atenolol [Tenormin] 50 mg PO BID 01/27/17 09/08/17 Enalapril/Hydrochlorothiazide 1 tab PO BID 01/27/17 09/08/17 [Enalapril-Hctz 5-12.5 mg Tab] Hydrocodone/Chlorphen P-Stirex 5 ml PO BID 01/27/17 09/08/17 [Tussionex Pennkinetic Susp] Lidocaine Patch [Lidoderm 5% patch] 1 patch TP DAILY PRN 01/27/17 09/08/17 Omeprazole [PriLOSEC] 40 mg PO BID 01/27/17 09/08/17 Sertraline [Zoloft] 200 mg PO DAILY 01/27/17 09/08/17 Tramadol HCl [Ultram] 50 mg PO QID PRN 01/27/17 09/08/17 Previous Rx's Medication Instructions Recorded Aspirin [Lo-Dose Aspirin EC] 81 mg PO DAILY #30 tablet. 02/06/17 Allergies Allergy/AdvReac Type Severity Reaction Status Date / Time hydrocodone [From Vicodin] AdvReac Itching Verified 09/08/17 19:30 Oxycodone [From Percocet] AdvReac Itching Verified 09/08/17 19:30 All systems ED: reviewed and negative except as stated. Review of Systems: As Per HPI Constitutional: Reports: weakness. Denies: fever, chills ENT ED: Denies: congestion Cardiovascular: Denies: chest pain Respiratory: Denies: cough, dyspnea Gastrointestinal: Denies: abdominal pain, nausea, vomiting, melena, hematochezia Musculoskeletal: Reports: back pain. Denies: neck pain Integumentary: Reports: abrasion Neurological: Denies: headache, weakness, numbness, paresthesias Psychiatric: Denies: anxiety, depression Past Medical History - Past Medical History Attestation: Yes The following information was validated with the patient. Source: patient Medical history: Reports: hypertension Surgical history: Reports: cholecystectomy, other Psychiatric history: Reports: anxiety, depression - Social History Smoking Status: Current every day smoker Smokeless Tobacco Status: No Alcohol use: Reports: none Drug use: Reports: none Physical Exam - General Limitations: no limitations General appearance: alert, in no apparent distress - Head Head exam: normocephalic, normal inspection - Expanded Head Exam Head exam physicial: Present: abrasion (Right ear). Absent: raccoon eyes, Marques's sign - Eye Eye exam: Present: normal appearance, PERRL, EOMI - ENT ENT exam: normal exam, normal oropharynx, mucous membranes moist - Expanded ENT Exam External ear exam: Present: normal external inspection Nose exam: negative: rhinorrhea Mouth exam: Present: normal external inspection, tongue normal Teeth exam: Present: fractured tooth # (believes new) 1 - Fractured Throat exam: Present: normal inspection - Neck Neck exam: Present: normal inspection, full ROM, trachea midline - Chest Chest inspection: Present: normal inspection, symmetric chest wall rise. Absent : tenderness - Respiratory Respiratory exam: Present: normal lung sounds bilaterally. Absent: respiratory distress, wheezes - Cardiovascular Cardiovascular exam: Present: regular rate, normal rhythm, normal heart sounds. Absent: systolic murmur, diastolic murmur - Abdominal Exam Abdominal exam: Present: soft, Non-Tender, normal bowel sounds. Absent: tenderness, distention, guarding, rebound, rigidity - Expanded Lower Extremity Exam Hip/Pelvis exam: Present: normal inspection, full ROM, pelvis stable. Absent: external rotation, internal rotation, shortening Upper leg exam: Present: normal inspection, full ROM Knee exam: Present: normal inspection, full ROM Lower leg exam: Present: normal inspection, full ROM Ankle exam: Present: normal inspection, full ROM Foot/toe exam: Present: normal inspection, full ROM Neurovascular/Tendon exam: Present: normal capillary refill. Absent: pulse deficit, motor deficit, sensory deficit, tendon deficit - Back Exam Back exam: Present: normal inspection, full ROM. Absent: tenderness - Neurological Exam Neurological exam: Present: alert, oriented X3, CN II-XII intact - Expanded Neurological Exam Patient oriented to: Present: person, place, time Speech: Present: fluid speech Cranial nerves: EOM function (II, III, IV, ): Normal, facial sensation (V): Normal, facial palsy (VII): Normal, gag reflex (IX): Normal, spinal accessory function (XI): Normal, tongue deviation (XII): Normal Motor strength - LUE: 5/5 Motor strength - RUE: 5/5 Motor strength - LLE: 5/5 Motor strength - RLE: 5/5 Upper motor neuron exam: gege neglect: Absent bilaterally, pronator drift: Absent bilaterally Sensory exam upper extremity: light touch: Normal Sensory exam lower extremity: light touch: Normal - Psychiatric Psychiatric exam: Present: normal affect, normal mood - Skin Skin exam: Present: warm, dry, intact, normal color Course Course Narrative: Patient presents with lightheadedness and syncopal episode with fall yesterday. She reports history of frequent falls with similar symptoms of lightheadedness. She is not on any anticoagulants. She require prior admission back in January. On arrival here patient is awake alert and oriented. She is hypotensive systolic 90s. She admits to taking her blood pressure medication prior to arrival here. She is on Enalapril and hydrochlorothiazide as well as a beta pito. She denies any recent changes to her medications that she has been taken for over 10 years or so. On physical exam she has a mild abrasion to the right temporal area behind the ear. No cervical midline tenderness. Neurologic exam is normal without any focal neural deficits. She does have some mild lumbar midline tenderness also has a history of fusion. She is complaining of some pain around her hips but no leg shortening to suggest fracture at this time. Given her hypotension will evaluate for possible infectious source. Also check EKG image of her head. Patients in agreement with this plan. - Reevaluation(s) Reevaluation #1: Patient has chronic stable anemia. Her potassium is low at 3.2 as well as low magnesium. Will replete. Her sodium is also low at 130 this is the lowest as ever been. She continues to have fluid resuscitation with normal saline for hypotension. Her creatinine is significantly elevated at 1.4 this is twice are normal suggests this is likely elect cause of her symptoms today of lightheadedness. He could be secondary to her medications with poor clearance or a result of her hypotension. She continues to make good urine. She does not appear septic however the chest x-ray reveals possible pneumonia on the right lung field. She states that is stable chronic smokers cough without any sputum production. No fevers at home. She is not febrile here or tachycardic. At this time will hold off on any antibiotics. Her CT of the head did not reveal any abnormality. Her x-rays without any fracture. At this time patient would benefit admission for her hypotension, frequent fall, syncope and electrolyte abnormalities. Patient is in agreement with this plan. - Consultations Consultation #1: Spoke with on-call hospitalist aris Whalen to admit for syncope, hypotension, hypokalemia, JAYDON, hyponatremia. No further orders at this time Time: 21:58 Vital Signs Temperature 97.9 F 09/08/17 19:26 Pulse Rate 67 09/08/17 19:26 Respiratory Rate 20 09/08/17 19:26 Blood Pressure 86/49 09/08/17 19:26 O2 Sat by Pulse Oximetry 99 09/08/17 19:26 Temperature 97.9 F 09/08/17 19:26 Pulse Rate 63 09/08/17 21:52 Respiratory Rate 16 09/08/17 21:52 Blood Pressure 93/61 09/08/17 21:52 O2 Sat by Pulse Oximetry 96 09/08/17 21:52 Oxygen Delivery Oxygen Delivery Room Air Medical Decision Making - MDM Narrative Medical decision making narrative: Patient was discussed with my attending physician who agrees with ED management and final disposition. They independently evaluated the patient. Please refer to their attestation to this encounter for additional information. This note was generated by [employer] voice recognition software and as a result grammatical or spelling errors may occur using this program. - Medical Records Medical records reviewed: Yes I reviewed the patient's medical records. - Lab Data Lab results reviewed: Yes I reviewed the patient's lab results. Result diagrams: 09/08/17 19:50 09/08/17 19:50 Lab Results 09/08/17 09/08/17 09/08/17 Range/Units 19:50 19:50 20:12 WBC 9.9 (4.3-11.1) K/mcL RBC 3.55 L (3.82-4.97) M/mcL Hgb 11.3 L (11.5-15.4) g/dL Hct 32.9 L (35.3-44.9) % MCV 92.7 (83.0-100.0) fL MCH 31.8 (28.0-33.3) pg MCHC 34.3 (31.6-35.5) g/dL RDW 13.4 (11.5-14.5) % Plt Count 294 (140-400) K/mcL MPV 9.1 L (9.4-12.4) fL Immature Gran % 0.4 (0-4) % Seg Neutrophils % 57.1 % Lymphocytes % 26.6 % Monocytes % 9.6 % Eosinophils % 5.8 % Basophils % 0.5 % Neutrophils # 5.7 (1.6-8.9) K/mcL Lymphocytes # 2.6 (0.6-4.6) K/mcL Monocytes # 1.0 (0.0-1.3) K/mcL Eosinophils # 0.6 (0.0-0.6) K/mcL Basophils # 0.1 (0.0-0.2) K/mcL Sodium 130 L (136-145) mEq/L Potassium 3.2 L (3.5-5.1) mEq/L Chloride 93 L (98-107) mEq/L Carbon Dioxide 28 (23-29) mEq/L BUN 19 (6-20) mg/dL Creatinine 1.37 H (0.60-1.20) mg/dL Est GFR ( Amer) 48 L (> 60) Est GFR (Non-Af Amer) 40 L (> 60) BUN/Creatinine Ratio 14 (6-26) Glucose 93 (70-105) mg/dL POC Glucose (70-99) mg/dL Calculated Osmolality 272 L (280-300) Calcium 9.1 (8.6-10.3) mg/dL Magnesium 1.5 L (1.6-2.6) mg/dL Urine Color Yellow (Yellow) Urine Clarity Cloudy A (Clear) Urine pH 5.5 (5.0-8.0) pH Units Ur Specific [place] 1.012 (1.010-1.025) Urine Protein Negative (Neg-Trace) mg/dL Urine Glucose (UA) Normal (Normal) mg/dL Urine Ketones Negative (Negative) mg/dL Urine Blood Negative (Negative) Urine Nitrite Negative (Negative) Urine Bilirubin Small H (Negative) Urine Urobilinogen Normal (Normal) mg/dL Ur Leukocyte Esterase Negative (Negative) Urine Microscopic RBC 0-3 (0-3) per hpf Urine Microscopic WBC 5-15 H (0-3) per hpf Ur Squamous Epith Cells Many H (None-Few) per lpf Urine Bacteria None Seen (None-Few) per hpf Hyaline Casts None Seen (None-Few) per lpf Ur Culture Indicated? NO (NO) 09/08/17 Range/Units 20:46 WBC (4.3-11.1) K/mcL RBC (3.82-4.97) M/mcL Hgb (11.5-15.4) g/dL Hct (35.3-44.9) % MCV (83.0-100.0) fL MCH (28.0-33.3) pg MCHC (31.6-35.5) g/dL RDW (11.5-14.5) % Plt Count (140-400) K/mcL MPV (9.4-12.4) fL Immature Gran % (0-4) % Seg Neutrophils % % Lymphocytes % % Monocytes % % Eosinophils % % Basophils % % Neutrophils # (1.6-8.9) K/mcL Lymphocytes # (0.6-4.6) K/mcL Monocytes # (0.0-1.3) K/mcL Eosinophils # (0.0-0.6) K/mcL Basophils # (0.0-0.2) K/mcL Sodium (136-145) mEq/L Potassium (3.5-5.1) mEq/L Chloride (98-107) mEq/L Carbon Dioxide (23-29) mEq/L BUN (6-20) mg/dL Creatinine (0.60-1.20) mg/dL Est GFR ( Amer) (> 60) Est GFR (Non-Af Amer) (> 60) BUN/Creatinine Ratio (6-26) Glucose (70-105) mg/dL POC Glucose 101 H (70-99) mg/dL Calculated Osmolality (280-300) Calcium (8.6-10.3) mg/dL Magnesium (1.6-2.6) mg/dL Urine Color (Yellow) Urine Clarity (Clear) Urine pH (5.0-8.0) pH Units Ur Specific [place] (1.010-1.025) Urine Protein (Neg-Trace) mg/dL Urine Glucose (UA) (Normal) mg/dL Urine Ketones (Negative) mg/dL Urine Blood (Negative) Urine Nitrite (Negative) Urine Bilirubin (Negative) Urine Urobilinogen (Normal) mg/dL Ur Leukocyte Esterase (Negative) Urine Microscopic RBC (0-3) per hpf Urine Microscopic WBC (0-3) per hpf Ur Squamous Epith Cells (None-Few) per lpf Urine Bacteria (None-Few) per hpf Hyaline Casts (None-Few) per lpf Ur Culture Indicated? (NO) - Radiology Data Radiology results reviewed: Yes I reviewed the patient's radiology results. Head CT 09/08/17 20:02 IMPRESSION: No acute intracranial abnormality. D/ / Steven May MD / Steven May MD Interpreting Provider: Steven May MD Chest X-Ray 09/08/17 20:04 IMPRESSION: Patchy airspace opacity within the right mid upper lung, suggestive of possible pneumonia. That should be followed to resolution. D/ / Srinivas Davison MD / Srinivas Davison MD Interpreting Provider: Srinivas Davison MD Lumbar Spine X-Ray 09/08/17 21:13 IMPRESSION: No evidence for fracture in the lumbar spine or pelvis. D/ / Ac Wilson MD / Ac Wilson MD Interpreting Provider: Ac Wilson MD Pelvis X-Ray 09/08/17 21:13 IMPRESSION: No evidence for fracture in the lumbar spine or pelvis. D/ / Ac Wilson MD / Ac Wilson MD Interpreting Provider: Ac Wilson MD - EKG Data EKG #1 EKG attestation: Yes I reviewed and interpreted this EKG. EKG results narrative: EKG performed 1935 normal sinus rhythm 67 beats per minute, normal axis, good R wave progression, no ST elevation or depression, [place] interval is prolonged 206, QRS 125, QT QTC 419 434. Compared to prior EKG performed 01/20/2017 with similar consistent findings. No acute ischemic changes.
[2017-09-08 20:24] LABS: Bilirubin,Urine Small (Negative); Blood,Urine Negative (Negative); Clarity,Urine Cloudy (Clear); Color,Urine Yellow (Yellow); Glucose,Urine (UA) Normal (Normal); Ketones,Urine Negative (Negative); Leukocyte Esterase,Urine Negative (Negative); Nitrite,Urine Negative (Negative); PH,Urine 5.5 pH Units (5.0-8.0); Protein,Urine Negative (Neg-Trace); Specific Gravity,Urine 1.012 (1.010-1.025); Urobilinogen,Urine Normal (Normal)
[2017-09-08 20:26] LABS: Bacteria,Urine None Seen per hpf (None-Few); Hyaline Casts,Urine None Seen per lpf (None-Few); RBC,Urine 0-3 per hpf (0-3); Squamous Epithelial Cell,Urine Many per lpf (None-Few)
[2017-09-08 20:39] LABS: Calcium 9.1 mg/dL (8.6-10.3); Magnesium 1.5 mg/dL (1.6-2.6); Potassium 3.2 mEq/L (3.5-5.1)
[2017-09-08] MEDS ORDERED: 0.9 % Sodium Chloride 1,000 ML IVC SCH (22:00)
--- NOTE | 2017-09-08 22:56 | Internal Med History&Physical ---
<Todd Wooten - Last Filed: 09/09/17 00:37> Date of Encounter: 09/08/17 Time of Encounter: 22:22 Internal Medicine - H&P: HPI Chief complaint: Falls Admitted From: Home History of present illness: Ms. Torres is a 57 year old female with a PMH of HTN, GERD, anxiety, cervical spinal stenosis requiring anterior surgical decompression/ fusion on 01/27/17, and tobacco dependence who presented from home c/o lightheadedness and recent fall yesterday. Patient reports a syncopal episode after using the bathroom, she stood up to flush the toilet when she began feeling woozy and weak in her legs. She does not recall how she fell but remembers landing on her tailbone on top of the toilet brush and plunger and hitting her head behind the right ear. She also thinks she may have broken her front tooth on the right since the fall. Patient's daughter who she lives with her states she has been having issues with dizziness and syncope since January 2017. At that time, she was hospitalized and evaluated for near syncope. Her echocardiogram revealed EF 60 % with mild diastolic dysfunction and atypical septal motion abnormality. Her carotid ultrasound revealed severe 60-79% right distal carotid stenosis and moderate 40-59% proximal left carotid stenosis. The patient elected to follow up outpatient with vascular surgey and was started on Aspirin 81mg daily. Daughter states she has a history of frequent falls at home and is typically very confused afterwards and sometimes combative. She denies associated fever, chills, CP, SOB, palpitations, abd pain, sputum production, N/V/D, constipation , recent illness, recent medication changes, history of epilepsy or seizures. She does not take any anticoagulants. She was hypotensive with systolic BPs in the 90s on arrival. Patient admits to taking her blood pressure medication prior to arrival including Enalapril, Hydrochlorothiazide, and Atenolol. Past Med Surg Social Fam HX - Past Medical History Medical history: GERD, hypertension, syncope Psychiatric history: anxiety, depression - Past Surgical History Surgical History: cholecystectomy, other Additional surgical history: tubal ligation. cervical fusion - Social History Smoking Status: Current every day smoker Smokeless Tobacco Status: No Alcohol use: none Drug use: none Current living situation: Home, With Family Activity Level: Independent ambulation Recent Out of Country Travel Within the Last 8 Weeks: No Exposure or Possible Exposure to Illness During Travel: No - Family History Mother Adopted: No Family Member Ethnicity: Non- Living Status: Hx Family Cardiac Disorders: No Hx Family Respiratory Disorders: No Hx Family Cancer: Yes (Liver) Hx Family GI Disorders: No Hx Family Endocrine Disorder: No Hx Family Neuromuscular Disorders: No Hx Family Neurologic Disorders: No Hx Family HEENT Disorders: No Hx Family Autoimmune Disorders: No Father Hx Family Cancer: Yes (Prostate) Internal Medicine - H&P: Meds ALPRAZolam [Xanax 1 MG Tablet] 2 tab PO QID PRN 01/27/17 [History] Atenolol [Tenormin] 50 mg PO BID 01/27/17 [History] Enalapril/Hydrochlorothiazide [Enalapril-Hctz 5-12.5 mg Tab] 1 tab PO BID [History] Hydrocodone/Chlorphen P-Stirex [Tussionex Pennkinetic Susp] 5 ml PO BID [History] Lidocaine Patch [Lidoderm 5% patch] 1 patch TP DAILY PRN 01/27/17 [History] Omeprazole [PriLOSEC] 40 mg PO BID 01/27/17 [History] Sertraline [Zoloft] 200 mg PO DAILY 01/27/17 [History] Tramadol HCl [Ultram] 50 mg PO QID PRN 01/27/17 [History] Aspirin [Lo-Dose Aspirin EC] 81 mg PO DAILY #30 tablet. 02/06/17 [Rx] 3 Allergy/AdvReac Type Severity Reaction Status Date / Time hydrocodone [From Vicodin] AdvReac Itching Verified 09/08/17 19:30 Oxycodone [From Percocet] AdvReac Itching Verified 09/08/17 19:30 All Systems PM: A 10-system review of systems was performed and is negative for pertinent findings except as documented above in the HPI. - Constitutional Constitutional: fatigue, falls, lethargy, malaise, weakness, no anorexia, no chills, no fever(s), no weight gain, no weight loss - EENT Eyes: no blurry vision, no diplopia Nose, mouth and throat: no sinus pain, no sore throat - Cardiovascular Cardiovascular ROS IM: lightheadedness, syncope, no chest pain, no dyspnea, no edema, no irregular heart rhythm, no orthopnea, no palpitations, no paroxysmal nocturnal dyspnea - Respiratory Respiratory: no cough, no dyspnea, no dyspnea on exertion, no wheezing, no chest congestion, no excessive phlegm production - Gastrointestinal Gastrointestinal: no abdominal pain, no constipation, no diarrhea, no heartburn , no nausea, no vomiting - Genitourinary Genitourinary: no dysuria, no hematuria, no urinary frequency, no urinary urgency - Musculoskeletal Musculoskeletal ROS IM: back pain, no numbness, no tingling - Integumentary Integumentary IM: no erythema, no new lesions, no rash - Neurological Neurological ROS: dizziness, frequent falls, vertigo, weakness, no focal weakness, no headache(s), no numbness, no paresthesias - Psychiatric Psychiatric: no anxiety, no depression - Endocrine Endocrine IM: fatigue, no polydipsia, no polyphagia, no polyuria - Hematologic/Lymphatic Hematologic/Lymphatic: no easy bleeding, no easy bruising - Constitutional Vitals: Temp Pulse Resp BP Pulse Ox 97.9 F 63 16 93/61 96 09/08/17 19:26 09/08/17 21:52 09/08/17 21:52 09/08/17 21:52 09/08/17 21:52 General appearance: Present: cooperative, A&O X 3, no acute distress Exam: patient appears lethargic, difficult to arouse with sternal rub, became more awake after Narcan given at bedside - Head Head exam: Present: atraumatic, normocephalic - Eye Eye exam: Present: EOMI, conjuntiva pink, sclera anicteric - ENT ENT exam: Present: mucous membranes dry, normal oropharynx - Neck Neck exam general surgery: Present: normal inspection, tenderness (chronic c- spine), supple, trachea midline. Absent: lymphadenopathy - Respiratory Respiratory exam: Present: CTAB. Absent: accessory muscle use, rales, respiratory distress, rhonchi, wheezes - Cardiovascular Cardiovascular exam: Present: RRR, +S1, +S2. Absent: diastolic murmur, gallop, rubs, systolic murmur - GI/Abdominal GI/Abdominal exam: Present: normal bowel sounds, soft, no peritoneal signs. Absent: distended, guarding, tenderness - Extremities Exam Extremities exam: Present: normal capillary refill, normal inspection, warm, radial pulses palpable and symmetrical. Absent: calf tenderness, cyanotic, pedal edema - Back Exam Back exam: Present: normal inspection, tenderness (L-spine, chronic). Absent: CVA tenderness (L), CVA tenderness (R) - Neurological Exam Neurological exam: Present: CN II-XII intact, oriented X3, no focal deficits, strengths equal and symetr throughout. Absent: pronater drift, facial droop, speech deficit - Psychiatric Psychiatric exam: Present: depressed, flat affect - Skin Skin exam: Present: dry, intact, normal color (tattoos), warm Internal Med - H&P Results - Labs CBC & Chem 7: 09/08/17 19:50 09/08/17 19:50 - Pulse Oximetry Interpretation Digit-Finger O2 Sat by Pulse Oximetry: 96 (On room air) - EKG Data -: EKG Interpreted by Myself EKG shows normal: sinus rhythm (HR 67 bpm, good R wave progression, no ST elevation or depression, IA interval is prolonged 206, QRS 125, QTC 434. No acute ischemic changes.), axis - EKG Data Prior EKG available for review: yes When compared to previous EKG: there is no significant change - Impressions Impressions Head CT 09/08/17 20:02 IMPRESSION: No acute intracranial abnormality. D/ / Steven May MD / Steven May MD Interpreting Provider: Steven May MD Chest X-Ray 09/08/17 20:04 IMPRESSION: Patchy airspace opacity within the right mid upper lung, suggestive of possible pneumonia. That should be followed to resolution. D/ / Srinivas Davison MD / Srinivas Davison MD Interpreting Provider: Srinivas Davison MD Lumbar Spine X-Ray 09/08/17 21:13 IMPRESSION: No evidence for fracture in the lumbar spine or pelvis. D/ / Ac Wilson MD / Ac Wilson MD Interpreting Provider: Ac Wilson MD Pelvis X-Ray 09/08/17 21:13 IMPRESSION: No evidence for fracture in the lumbar spine or pelvis. D/ / Ac Wilson MD / Ac Wilson MD Interpreting Provider: Ac Wilson MD - Assessment and plan (1) Syncope Current Visit: Yes Status: Acute Assessment and plan: Patient with cervical spinal stenosis requiring anterior surgical decompression / fusion on 01/27/17 Presented from home s/p syncopal episode after using the bathroom. She states she was down for about 10 minutes, CK level pending. Leslie reports similar episodes since January 2017 requiring hospitalization Echocardiogram on 02/05/18 revealed EF 60% with mild diastolic dysfunction and atypical septal motion abnormality. Carotid ultrasound on 02/05/18 revealed severe 60-79% right distal carotid stenosis and moderate 40-59% proximal left carotid stenosis. Patient followed up outpatient with vascular surgeon who recommended no acute intervention at that time She was started on Aspirin 81mg daily. Continue telemetry monitoring Continue fall precautions Vascular surgery consulted Qualifiers: Syncope type: unspecified Qualified Code(s): R55 - Syncope and collapse (2) Acute kidney injury Current Visit: Yes Status: Acute Assessment and plan: Prerenal JAYDON in the setting of dehydration, ACEI use, diuretic use, and hypotension BP 81/54 patient states she was laying on the floor for about 10 minutes, CK level pending to r/o rhabdomyelitis. Patient was given 2L NS IVF in the ED Continue IVF at 120cc/hr Hold ACEI and HCTZ Monitor renal function Avoid nephrotoxins (3) HTN (hypertension) Current Visit: No Status: Chronic Assessment and plan: She was hypotensive with systolic BPs in the 90s on arrival. Patient admits to taking her blood pressure medication prior to arrival including Enalapril, Hydrochlorothiazide, and Atenolol. Glucagon 3mg IV given to reverse beta pito Hold home meds due to hypotension Continue close monitoring Qualifiers: Hypertension type: essential hypertension Qualified Code(s): I10 - Essential (primary) hypertension (4) Anemia Current Visit: Yes Status: Chronic Assessment and plan: HGB level stable, no signs of bleeding Fecal occult blood test pending Continue PPI Continue close monitoring Qualifiers: Anemia type: unspecified type Qualified Code(s): D64.9 - Anemia, unspecified (5) GERD (gastroesophageal reflux disease) Current Visit: No Status: Chronic Assessment and plan: Continue PPI Continue close monitoring Qualifiers: Esophagitis presence: esophagitis presence not specified Qualified Code(s) : K21.9 - Gastro-esophageal reflux disease without esophagitis (6) Anxiety disorder Current Visit: Yes Status: Acute Assessment and plan: Continue home meds Qualifiers: Anxiety disorder type: unspecified anxiety disorder Qualified Code(s): F41.9 - Anxiety disorder, unspecified (7) Hypokalemia Current Visit: Yes Status: Acute Assessment and plan: Potassium supplemented Continue monitoring (8) Hypomagnesemia Current Visit: Yes Status: Acute Assessment and plan: Magnesium supplemented Continue monitoring (9) Hyponatremia Current Visit: Yes Status: Acute Assessment and plan: Continue IV hydration Continue monitoring (10) Tobacco dependence Current Visit: No Status: Chronic Assessment and plan: Tobacco cessation discussed (11) DVT prophylaxis Current Visit: Yes Status: Acute Assessment and plan: EPCDs (12) Carotid stenosis, bilateral Current Visit: Yes Status: Chronic Assessment and plan: Symptomatic carotid stenosis Carotid ultrasound on 02/05/18 revealed severe 60-79% right distal carotid stenosis and moderate 40-59% proximal left carotid stenosis. Patient followed up outpatient with vascular surgeon who recommended no acute intervention at that time She was started on Aspirin 81mg daily. Repeat carotid ultrasound pending Vascular surgery consulted - Time Spent With Patient Total time spent is greater than 50% in coordination of care (as documented) at patient's floor/unit and/or counseling patient: <Mario Prado P - Last Filed: 09/09/17 04:22> Date of Encounter: 09/09/17 Internal Medicine - H&P: HPI History of present illness: Ms. Torres is a 57 year old female All Systems PM: A 10-system review of systems was performed and is negative for pertinent findings except as documented above in the HPI. - Constitutional Vitals: Temp Pulse Resp BP Pulse Ox 97.1 F L 61 12 108/63 94 09/09/17 04:02 09/09/17 04:02 09/09/17 04:02 09/09/17 04:02 09/09/17 04:02 Internal Med - H&P Results - Labs CBC & Chem 7: 09/08/17 19:50 09/08/17 19:50 - Attending Attestation I have seen the patient and performed my own history and physical examination. I have discussed the case with the admitting resident, and I agree with his assessment and plan of care as documented in his H&P. Briefly, patient admitted for observation for syncope and falls. She was also found to be mildly hypokalemic and with JAYDON. She was hypotensive upon admission. She was given IV NS boluses in ED, and we will continue on maintenance IVF for JAYDON and hypotension. Hold home antihypertensives at this time. We will replete electrolytes and obtain repeat labwork in AM. She had extensive syncope workup during admission in January 2017. Of significance was R > L carotid stenosis. She follows up with vascular surgery as outpatient. Will obtain repeat carotid U/S in AM; consider vascular surgery consult based on results. Continue home aspirin. Keep on telemetry. Consult PT/OT. - Assessment and plan (1) Syncope Current Visit: Yes Status: Acute Qualifiers: Syncope type: unspecified Qualified Code(s): R55 - Syncope and collapse (2) Hypokalemia Current Visit: Yes Status: Acute (3) DVT prophylaxis Current Visit: Yes Status: Acute (4) Acute kidney injury Current Visit: Yes Status: Acute (5) Hyponatremia Current Visit: Yes Status: Acute (6) Hypomagnesemia Current Visit: Yes Status: Acute (7) HTN (hypertension) Current Visit: No Status: Chronic Qualifiers: Hypertension type: essential hypertension Qualified Code(s): I10 - Essential (primary) hypertension (8) Tobacco dependence Current Visit: No Status: Chronic (9) Anemia Current Visit: Yes Status: Chronic Qualifiers: Anemia type: unspecified type Qualified Code(s): D64.9 - Anemia, unspecified (10) GERD (gastroesophageal reflux disease) Current Visit: No Status: Chronic Qualifiers: Esophagitis presence: esophagitis presence not specified Qualified Code(s) : K21.9 - Gastro-esophageal reflux disease without esophagitis (11) Anxiety disorder Current Visit: Yes Status: Acute Qualifiers: Anxiety disorder type: unspecified anxiety disorder Qualified Code(s): F41.9 - Anxiety disorder, unspecified (12) Carotid stenosis, bilateral Current Visit: Yes Status: Chronic - Time Spent With Patient Total time spent is greater than 50% in coordination of care (as documented) at patient's floor/unit and/or counseling patient:
[2017-09-08] MEDS ORDERED: Ondansetron 4 MG/2 ML VIAL IVP PRN (23:09)
[2017-09-08] MEDS ORDERED: traMADol 50 MG TABLET PO PRN (23:09)
[2017-09-08] MEDS ORDERED: *HR* HYDROcodone/Acet 5/325 mg TABLET PO PRN (23:09)
[2017-09-08] MEDS ORDERED: Naloxone 0.4 MG/ML INJ IVP PRN (23:09)
--- NOTE | 2017-09-09 04:25 | Emergency Department Note ---
Disposition Clinical Impression: Hypokalemia, Acute kidney injury, Hyponatremia, Hypomagnesemia Syncope Qualifiers: Syncope type: unspecified Qualified Code(s): R55 - Syncope and collapse Hypotension Qualifiers: Hypotension type: unspecified hypotension type Qualified Code(s): I95.9 - Hypotension, unspecified Disposition: Admitted As Inpatient Condition: Good General Adult HPI - General Chief complaint: ED Dizziness Stated complaint: dizzy spells/ fall it head Time Seen by Provider: 09/08/17 19:39 Source: patient Limitations: no limitations - History of Present Illness Pain Scale: 4 - Related Data Home Medications Medication Instructions Recorded Confirmed ALPRAZolam [Xanax 1 MG Tablet] 2 tab PO QID PRN 01/27/17 09/08/17 Atenolol [Tenormin] 50 mg PO BID 01/27/17 09/08/17 Enalapril/Hydrochlorothiazide 1 tab PO BID 01/27/17 09/08/17 [Enalapril-Hctz 5-12.5 mg Tab] Hydrocodone/Chlorphen P-Stirex 5 ml PO BID 01/27/17 09/08/17 [Tussionex Pennkinetic Susp] Lidocaine Patch [Lidoderm 5% patch] 1 patch TP DAILY PRN 01/27/17 09/08/17 Omeprazole [PriLOSEC] 40 mg PO BID 01/27/17 09/08/17 Sertraline [Zoloft] 200 mg PO DAILY 01/27/17 09/08/17 Tramadol HCl [Ultram] 50 mg PO QID PRN 01/27/17 09/08/17 Previous Rx's Medication Instructions Recorded Aspirin [Lo-Dose Aspirin EC] 81 mg PO DAILY #30 tablet. 02/06/17 Allergies Allergy/AdvReac Type Severity Reaction Status Date / Time hydrocodone [From Vicodin] AdvReac Itching Verified 09/08/17 19:30 Oxycodone [From Percocet] AdvReac Itching Verified 09/08/17 19:30 Constitutional: Reports: weakness. Denies: fever, chills ENT ED: Denies: congestion Cardiovascular: Denies: chest pain Respiratory: Denies: cough, dyspnea Gastrointestinal: Denies: abdominal pain, nausea, vomiting, melena, hematochezia Musculoskeletal: Reports: back pain. Denies: neck pain Integumentary: Reports: abrasion Neurological: Denies: headache, weakness, numbness, paresthesias Psychiatric: Denies: anxiety, depression Past Medical History - Past Medical History Medical history: Reports: GERD, hypertension, syncope Surgical history: Reports: cholecystectomy, other Psychiatric history: Reports: anxiety, depression - Social History Smoking Status: Current every day smoker Smokeless Tobacco Status: No Alcohol use: Reports: none Drug use: Reports: none Physical Exam - General Limitations: no limitations General appearance: alert, in no apparent distress Course Vital Signs Temperature 97.9 F 09/08/17 19:26 Pulse Rate 67 09/08/17 19:26 Respiratory Rate 20 09/08/17 19:26 Blood Pressure 86/49 09/08/17 19:26 O2 Sat by Pulse Oximetry 99 09/08/17 19:26 Temperature 97.1 F L 09/09/17 04:02 Pulse Rate 61 09/09/17 04:02 Respiratory Rate 12 09/09/17 04:02 Blood Pressure 108/63 09/09/17 04:02 O2 Sat by Pulse Oximetry 94 09/09/17 04:02 Oxygen Delivery Oxygen Delivery Room Air Medical Decision Making - Lab Data Result diagrams: 09/08/17 19:50 09/08/17 19:50 Lab Results 09/08/17 09/08/17 09/08/17 Range/Units 19:50 19:50 20:12 WBC 9.9 (4.3-11.1) K/mcL RBC 3.55 L (3.82-4.97) M/mcL Hgb 11.3 L (11.5-15.4) g/dL Hct 32.9 L (35.3-44.9) % MCV 92.7 (83.0-100.0) fL MCH 31.8 (28.0-33.3) pg MCHC 34.3 (31.6-35.5) g/dL RDW 13.4 (11.5-14.5) % Plt Count 294 (140-400) K/mcL MPV 9.1 L (9.4-12.4) fL Immature Gran % 0.4 (0-4) % Seg Neutrophils % 57.1 % Lymphocytes % 26.6 % Monocytes % 9.6 % Eosinophils % 5.8 % Basophils % 0.5 % Neutrophils # 5.7 (1.6-8.9) K/mcL Lymphocytes # 2.6 (0.6-4.6) K/mcL Monocytes # 1.0 (0.0-1.3) K/mcL Eosinophils # 0.6 (0.0-0.6) K/mcL Basophils # 0.1 (0.0-0.2) K/mcL Sodium 130 L (136-145) mEq/L Potassium 3.2 L (3.5-5.1) mEq/L Chloride 93 L (98-107) mEq/L Carbon Dioxide 28 (23-29) mEq/L BUN 19 (6-20) mg/dL Creatinine 1.37 H (0.60-1.20) mg/dL Est GFR ( Amer) 48 L (> 60) Est GFR (Non-Af Amer) 40 L (> 60) BUN/Creatinine Ratio 14 (6-26) Glucose 93 (70-105) mg/dL POC Glucose (70-99) mg/dL Calculated Osmolality 272 L (280-300) Calcium 9.1 (8.6-10.3) mg/dL Magnesium 1.5 L (1.6-2.6) mg/dL Urine Color Yellow (Yellow) Urine Clarity Cloudy A (Clear) Urine pH 5.5 (5.0-8.0) pH Units Ur Specific [place] 1.012 (1.010-1.025) Urine Protein Negative (Neg-Trace) mg/dL Urine Glucose (UA) Normal (Normal) mg/dL Urine Ketones Negative (Negative) mg/dL Urine Blood Negative (Negative) Urine Nitrite Negative (Negative) Urine Bilirubin Small H (Negative) Urine Urobilinogen Normal (Normal) mg/dL Ur Leukocyte Esterase Negative (Negative) Urine Microscopic RBC 0-3 (0-3) per hpf Urine Microscopic WBC 5-15 H (0-3) per hpf Ur Squamous Epith Cells Many H (None-Few) per lpf Urine Bacteria None Seen (None-Few) per hpf Hyaline Casts None Seen (None-Few) per lpf Ur Culture Indicated? NO (NO) 09/08/17 Range/Units 20:46 WBC (4.3-11.1) K/mcL RBC (3.82-4.97) M/mcL Hgb (11.5-15.4) g/dL Hct (35.3-44.9) % MCV (83.0-100.0) fL MCH (28.0-33.3) pg MCHC (31.6-35.5) g/dL RDW (11.5-14.5) % Plt Count (140-400) K/mcL MPV (9.4-12.4) fL Immature Gran % (0-4) % Seg Neutrophils % % Lymphocytes % % Monocytes % % Eosinophils % % Basophils % % Neutrophils # (1.6-8.9) K/mcL Lymphocytes # (0.6-4.6) K/mcL Monocytes # (0.0-1.3) K/mcL Eosinophils # (0.0-0.6) K/mcL Basophils # (0.0-0.2) K/mcL Sodium (136-145) mEq/L Potassium (3.5-5.1) mEq/L Chloride (98-107) mEq/L Carbon Dioxide (23-29) mEq/L BUN (6-20) mg/dL Creatinine (0.60-1.20) mg/dL Est GFR ( Amer) (> 60) Est GFR (Non-Af Amer) (> 60) BUN/Creatinine Ratio (6-26) Glucose (70-105) mg/dL POC Glucose 101 H (70-99) mg/dL Calculated Osmolality (280-300) Calcium (8.6-10.3) mg/dL Magnesium (1.6-2.6) mg/dL Urine Color (Yellow) Urine Clarity (Clear) Urine pH (5.0-8.0) pH Units Ur Specific [place] (1.010-1.025) Urine Protein (Neg-Trace) mg/dL Urine Glucose (UA) (Normal) mg/dL Urine Ketones (Negative) mg/dL Urine Blood (Negative) Urine Nitrite (Negative) Urine Bilirubin (Negative) Urine Urobilinogen (Normal) mg/dL Ur Leukocyte Esterase (Negative) Urine Microscopic RBC (0-3) per hpf Urine Microscopic WBC (0-3) per hpf Ur Squamous Epith Cells (None-Few) per lpf Urine Bacteria (None-Few) per hpf Hyaline Casts (None-Few) per lpf Ur Culture Indicated? (NO) Attestation Statement - Attestation Attestation: I examined this patient and my medical decision-making was reviewed with the Resident Physician. I agree with the documented findings, disposition and treatment plan as described except to the extent set forth below. Severe generalized weakness with recurrent syncope. Blood pressures running in the 80s and 90s here. No symptoms of GI bleeding. No recent changes in her blood pressure medications. She has an acute bump in her creatinine, this could be due to hypoperfusion of her kidneys from the hypotension, or, more likely in my judgment, the cause of her syncope as a result of impaired clearance of her antihypertensive medications. She the given IV fluids emergency department. He is awake, coherent with normal speech and no acute neurologic deficits. No pain in the chest or abdomen.
[2017-09-09 06:30] LABS: Hematocrit 30.6 % (35.3-44.9); Hemoglobin 10.1 g/dL (11.5-15.4); Mean Corpuscular Hemoglobin 30.7 pg (28.0-33.3); Mean Platelet Volume 9.2 fL (9.4-12.4); Platelet Count 307 K/mcL (140-400); Red Blood Count 3.29 M/mcL (3.82-4.97); Red Cell Distribution Width 13.6 % (11.5-14.5)
[2017-09-09 06:37] LABS: Prothrombin Time 11.6 Seconds (9.4-12.1)
[2017-09-09 06:48] LABS: BUN/Creatinine Ratio 16 (6-26); Blood Urea Nitrogen 14 mg/dL (6-20); Calcium 8.6 mg/dL (8.6-10.3); Carbon Dioxide 26 mEq/L (23-29); Chloride 100 mEq/L (98-107); Creatine Kinase 221 Units/L (30-223); Glucose 96 mg/dL (70-105); Magnesium 2.6 mg/dL (1.6-2.6); Osmolality,Calculated 274 (280-300); Phosphorous 3.9 mg/dL (2.7-4.5); Sodium 132 mEq/L (136-145); eGFR For Non-African Americans > 60 (> 60)
[2017-09-09] MEDS: *HR* Enoxaparin 30 MG/0.3 ML SYRINGE SQ SCH (07:33)
[2017-09-09] MEDS: Nicotine 7 MG PATCH.TD24 TD SCH ×2 (07:33→21:19)
[2017-09-09] MEDS: Aspirin Enteric Coated 81 MG Tablet PO SCH (08:13)
[2017-09-09] MEDS ORDERED: Ketorolac 15 MG/ML VIAL IVP ONE (09:09)
--- NOTE | 2017-09-09 14:50 | Internal Med Progress Note ---
Date of Encounter: 09/09/17 Time of Encounter: 15:08 - Assessment and plan (1) Syncope Current Visit: Yes Status: Acute Assessment and plan: presented from home s/p syncopal episode. Patient reports frequent falls with residual confusion over the last 4-6 weeks. Etiology unknown at this time but concern for polypharmacy. 02/05/18 TTE revealed EF 60% with mild diastolic dysfunction and atypical septal motion abnormality. Carotid ultrasound with known stenosis. Brain MRI with remote hemorrhagic infarct within the right basal ganglia, no acute infarct or ischemia. Check orthostatic BPs, PT/OT consult. Neurology consult Qualifiers: Syncope type: unspecified Qualified Code(s): R55 - Syncope and collapse (2) CVA (cerebral vascular accident) Current Visit: Yes Status: Acute Assessment and plan: presented after a syncopal event with collapse, recurrent falls and confusion. No known history of CVA. Head CT nonacute. Brain MRI with remote hemorrhagic infarct within the right basal ganglia, no evidence of acute infarct or ischemia. Neurology consult Qualifiers: CVA mechanism: unspecified Qualified Code(s): I63.9 - Cerebral infarction, unspecified (3) Hypokalemia Current Visit: Yes Status: Acute Assessment and plan: monitor and replace PRN (4) Acute kidney injury Current Visit: Yes Status: Acute Assessment and plan: Prerenal JAYDON in the setting of dehydration, ACEI use, diuretic use, and hypotension. Resolved with IV fluids. Avoid effort toxic agents as possible. Intermittently monitor renal function. (5) Hyponatremia Current Visit: Yes Status: Acute Assessment and plan: Mild hyponatremia. Neurologically intact. Monitor repeat CMP (6) Hypomagnesemia Current Visit: Yes Status: Acute Assessment and plan: monitor and replace PRN (7) HTN (hypertension) Current Visit: No Status: Chronic Assessment and plan: per hx however she has been hypotensive. BP now improved. Continue holding BP medication. Monitor BP and resume medications as BP allows Qualifiers: Hypertension type: essential hypertension Qualified Code(s): I10 - Essential (primary) hypertension (8) Tobacco dependence Current Visit: No Status: Chronic Assessment and plan: Current smoker; cessation advised. (9) Anemia Current Visit: Yes Status: Chronic Assessment and plan: HGB level stable, no signs of bleeding. Monitor Qualifiers: Anemia type: unspecified type Qualified Code(s): D64.9 - Anemia, unspecified (10) GERD (gastroesophageal reflux disease) Current Visit: No Status: Chronic Assessment and plan: Continue PPI Qualifiers: Esophagitis presence: esophagitis presence not specified Qualified Code(s) : K21.9 - Gastro-esophageal reflux disease without esophagitis (11) Anxiety disorder Current Visit: Yes Status: Acute Assessment and plan: per hx. Cont home xanax but PRN only due to lethargy Qualifiers: Anxiety disorder type: unspecified anxiety disorder Qualified Code(s): F41.9 - Anxiety disorder, unspecified (12) Carotid stenosis, bilateral Current Visit: Yes Status: Chronic Assessment and plan: carotid ultrasound on 02/05/18 revealed severe 60-79% right distal carotid stenosis and moderate 40-59% proximal left carotid stenosis. Evaluated by Dr. Aggarwal who recommended no acute intervention at that time. Repeat carotid ultrasound essentially unchanged. Continue ASA. Vascular surgery consulted (13) DVT prophylaxis Current Visit: Yes Status: Acute Assessment and plan: lovenox - Time Spent With Patient Total time spent is greater than 50% in coordination of care (as documented) at patient's floor/unit and/or counseling patient: - Subjective Interval history: Seen and examined at bedside. Patient is new to me, information obtained from chart review and patient report. Sitting up in bed, appears drowsy. Still complaining of severe 10 out of 10 lower back pain. Worse with movement or coughing or anything that causes pressure. No point tenderness. No bowel or bladder incontinence. - Constitutional Vitals: Temp Pulse Resp BP Pulse Ox 97.8 F 65 18 107/64 95 09/09/17 12:20 09/09/17 12:20 09/09/17 12:20 09/09/17 12:20 09/09/17 12:20 General appearance: Present: cooperative, A&O X 3, no acute distress - Head Head exam: Present: atraumatic, normocephalic - Eye Eye exam: Present: PERRL, conjuntiva pink, sclera anicteric Pupils: Present: PERRL - Neck Neck exam general surgery: Present: supple, trachea midline. Absent: lymphadenopathy - Respiratory Respiratory exam: Present: CTAB. Absent: accessory muscle use, rales, rhonchi, wheezes - Cardiovascular Cardiovascular exam: Present: RRR, +S1, +S2. Absent: diastolic murmur, gallop, rubs, systolic murmur - GI/Abdominal GI/Abdominal exam: Present: normal bowel sounds, soft, no peritoneal signs. Absent: distended, tenderness - Extremities Exam Extremities exam: Present: warm, radial pulses palpable and symmetrical. Absent : calf tenderness, cyanotic, pedal edema - Neurological Exam Neurological exam: Present: CN II-XII intact, oriented X3, no focal deficits. Absent: pronater drift, facial droop, speech deficit - Skin Skin exam: Present: dry, intact Internal Medicine: Result - Labs CBC & Chem 7: 09/09/17 05:38 09/09/17 05:38 Labs: Short CBC 09/09/17 Range/Units 05:38 WBC 10.0 (4.3-11.1) K/mcL Hgb 10.1 L (11.5-15.4) g/dL Hct 30.6 L (35.3-44.9) % Plt Count 307 (140-400) K/mcL BMP 09/09/17 05:38 Sodium 132 L Potassium 4.0 Chloride 100 Carbon Dioxide 26 BUN 14 Creatinine 0.86 Glucose 96 Calcium 8.6 - ABG Interpretation ABG results: PT/INR, D-dimer PT 11.6 Seconds (9.4-12.1) 09/09/17 05:38 - Impressions Impressions Brain MRI 09/09/17 09:08 IMPRESSION: 1. No acute infarct or acute intracranial process identified. 2. Remote hemorrhagic infarct within the right basal ganglia. 3. Mild chronic small vessel ischemic changes. D/ / 09/09/2017 12:21:44 Evert Caal MD / edenilson Interpreting Provider: Evert Caal MD Consult Discharge Plan - Plan Referrals: NONE,PCP [Primary Care Provider] -
--- NOTE | 2017-09-09 15:27 | Vascular/Endovasc Consult Note ---
Date of Encounter: 09/09/17 Time of Encounter: 13:20 Assessment and Plan (1) Tobacco dependence Current Visit: Yes Status: Chronic Patient has history of tobacco abuse. She has been counseled in the past about the necessity for complete tobacco cessation. (2) Carotid stenosis, bilateral Current Visit: Yes Status: Chronic Patient has nonhemodynamically significant carotid artery stenosis by duplex scanning. The carotid system is not involved in the patient's syncopal episodes. I do not recommend further carotid artery angiography. I do not recommend further vascular testing. We will remain available if there are any further questions but at this time no vascular surgery intervention is anticipated. This was reviewed with the patient. All questions were answered. - History of Present Illness Consult date: 09/09/17 Consult reason: Syncope and carotid stenosis history Chief complaint: Syncope History of present illness: Ms. Torres is a 57 year old female Who was admitted via the ER and the patient is actually seen in the ER for syncope. Vascular surgery was asked to see the patient because she has a history of carotid artery disease. I know the patient from a previous office visit on February 17. At that time I'd seen the patient on her first visit because of the issue of syncope. The syncope has been ongoing for at least 6-7 months. The patient stated that she had had a C4-C7 fusion in [place] [address] Beyer. Shortly after her discharge on February 03 she had her initial episode of syncope. As part of her workup a duplex scan was obtained which demonstrated some carotid artery stenosis and she eventually was referred to me as an outpatient. When I saw her in the ER this afternoon the patient was sleeping and I had to arouse her from sleep. She has no active neurologic complaints. The patient has significant risk factors for vascular disease including hypertension and tobacco abuse. Family history is significant for coronary disease as well as hypertension and hyperlipidemia. Noninvasive testing from January 2017 demonstrated a 60-79% right internal carotid artery stenosis and a 40-59% stenosis of the left internal carotid. Interestingly, the duplex scan performed demonstrates a lower level of stenosis of only 40-59% in the right internal carotid artery system. The left internal carotid artery has nonhemodynamically significant plaque formation. The vertebral arteries appear to be normal with antegrade flow. Past Med Surg Social Fam HX - Past Medical History Medical history: GERD, hypertension, syncope Psychiatric history: anxiety, depression - Past Surgical History Surgical History: cholecystectomy, other Additional surgical history: tubal ligation. cervical fusion - Social History Smoking Status: Current every day smoker Packs per day: 1 Smokeless Tobacco Status: No Alcohol use: none Drug use: none - Family History Mother Adopted: No Family Member Ethnicity: Non- Living Status: Hx Family Cardiac Disorders: No Hx Family Respiratory Disorders: No Hx Family Cancer: Yes (Liver) Hx Family GI Disorders: No Hx Family Endocrine Disorder: No Hx Family Neuromuscular Disorders: No Hx Family Neurologic Disorders: No Hx Family HEENT Disorders: No Hx Family Autoimmune Disorders: No Father Hx Family Cancer: Yes (Prostate) Medications and Allergies ALPRAZolam [Xanax 1 MG Tablet] 2 tab PO QID PRN 01/27/17 [History] Atenolol [Tenormin] 50 mg PO BID 01/27/17 [History] Enalapril/Hydrochlorothiazide [Enalapril-Hctz 5-12.5 mg Tab] 1 tab PO BID [History] Hydrocodone/Chlorphen P-Stirex [Tussionex Pennkinetic Susp] 5 ml PO BID [History] Lidocaine Patch [Lidoderm 5% patch] 1 patch TP DAILY PRN 01/27/17 [History] Omeprazole [PriLOSEC] 40 mg PO BID 01/27/17 [History] Sertraline [Zoloft] 200 mg PO DAILY 01/27/17 [History] Tramadol HCl [Ultram] 50 mg PO QID PRN 01/27/17 [History] Aspirin [Lo-Dose Aspirin EC] 81 mg PO DAILY #30 tablet. 02/06/17 [Rx] 3 Allergy/AdvReac Type Severity Reaction Status Date / Time hydrocodone [From Vicodin] AdvReac Itching Verified 09/08/17 19:30 Oxycodone [From Percocet] AdvReac Itching Verified 09/08/17 19:30 All Systems Review: The remainder of the systems were reviewed and are negative Exam Vital Signs, Last 4 Hours Temp Pulse Resp BP Pulse Ox 09/09/17 12:20 97.8 F 65 18 107/64 95 General: Present: Conversant, No Apparent Distress, Well developed, Well nourished HEENT: Present: Atraumatic, Normocephaly, Trachea midline, Pupils equal Neck: Absent: JVD, Left Carotid bruit, Right Carotid bruit, Midline deformity, Tracheal deviation Cardiac: Present: Reg Rate and Rhythm, Normal S1 and S2, No Murmur. Absent: Irregular Rhythm Lungs: Present: Normal Breath Sounds, No Wheeze, Rales, Rhonchi Neuro: Present: Alert and responsive, No focal deficits noted, Cranial nerves grossly intact, Motor nerves grossly intact, Sensory nerves grossly intact Abdomen: Present: Soft, Non-tender Vascular: Present: Normal capillary refill Skin: Present: No rashes noted on visualized skin Consult Discharge Plan - Plan Referrals: NONE,PCP [Primary Care Provider] -
--- NOTE | 2017-09-09 18:54 | Electrocardiograph Report ---
[facility] [employer] Test Date: 2017-09-08 Pat Name: Kim Torres Department: 104 Room: 3B38 Gender: F [employer] Specialist: WILBUR : 1960 Requested By: Marshall Yanez Order Number: [id number] Reading MD: Jaren Downs Measurements Intervals [place] Rate: 67 P: 44 KS: 206 QRS: -5 QRSD: 125 T: 53 QT: 419 QTc: 434 Interpretive Statements SINUS RHYTHM MODERATE INTRAVENTRICULAR CONDUCTION DELAY Electronically Signed On 09-09-2017 18:52:12 EDT by Jaren Downs
[2017-09-09 19:24] LABS: Amphetamine Screen,Urine Negative ng/mL (Cutoff=1000); Barbiturate Screen,Urine Negative ng/mL (Cutoff=200); Benzodiazepines Screen,Urine Positive ng/mL (Cutoff=200); Cannabinoid Screen,Urine Negative ng/mL (Cutoff = 50); Cocaine Screen,Urine Positive ng/mL (Cutoff= 300); Opiate Screen,Urine Positive ng/mL (Cutoff=300); Phencyclidine Screen,Urine Negative ng/mL (Cutoff=25)
[2017-09-09] MEDS: Acetaminophen 325 MG TABLET PO PRN (21:40)
[2017-09-09] MEDS: ALPRAZolam 1 MG TABLET PO PRN (21:40)
[2017-09-10 05:18] LABS: Hematocrit 32.1 % (35.3-44.9); Hemoglobin 10.9 g/dL (11.5-15.4); Mean Corpuscular Volume 91.2 fL (83.0-100.0); Mean Platelet Volume 8.9 fL (9.4-12.4); Platelet Count 337 K/mcL (140-400); Red Blood Count 3.52 M/mcL (3.82-4.97); Red Cell Distribution Width 13.4 % (11.5-14.5)
[2017-09-10 05:34] LABS: BUN/Creatinine Ratio 19 (6-26); Blood Urea Nitrogen 10 mg/dL (6-20); Calcium 9.1 mg/dL (8.6-10.3); Carbon Dioxide 27 mEq/L (23-29); Chloride 105 mEq/L (98-107); Glucose 86 mg/dL (70-105); Osmolality,Calculated 286 (280-300); Potassium 3.3 mEq/L (3.5-5.1); Sodium 139 mEq/L (136-145); eGFR For Non-African Americans > 60 (> 60)
[2017-09-10] MEDS: *HR* Enoxaparin 30 MG/0.3 ML SYRINGE SQ SCH (05:57)
[2017-09-10] MEDS: Aspirin Enteric Coated 81 MG Tablet PO SCH (08:45)
[2017-09-10] MEDS: Acetaminophen 325 MG TABLET PO PRN (10:31)
[2017-09-10] MEDS: ALPRAZolam 1 MG TABLET PO PRN ×3 (10:31→20:51)
[2017-09-10 15:20] LABS: Thyroid Stimulating Hormone 3.22 mcIU/mL (0.340-5.600)
--- NOTE | 2017-09-10 17:29 | Internal Med Progress Note ---
Date of Encounter: 09/10/17 Time of Encounter: 17:27 - Assessment and plan (1) Syncope Current Visit: Yes Status: Acute Assessment and plan: presented from home s/p syncopal episode. Patient reports frequent falls with residual confusion over the last 4-6 weeks. Further workup including CXR, shoulder XR and cervical XR showed no fracture. MRI brain no acute CVA but revealed old hemorrhagic stroke at basal ganglia. Orthostatic BP is positive. - TSH, free cortisol and Vit B12 all normal. - Given syncope occurs when she changed body position: from laying to sitting or standing, positive orthostatic BP, orthostatic hypotension seems to be the culprit. She was hypotensive upon admission. Home BP meds were on hold. BP now normal, we will resume ACEI, but continue to hold HCTZ and BB. - Pt was instructed to increase water and salt intake. Qualifiers: Syncope type: unspecified Qualified Code(s): R55 - Syncope and collapse (2) Hypokalemia Current Visit: Yes Status: Acute Assessment and plan: monitor and replace PRN (3) Acute kidney injury Current Visit: Yes Status: Resolved Assessment and plan: Prerenal JAYDON in the setting of dehydration, ACEI use, diuretic use, and hypotension. Resolved with IV fluids. Avoid effort toxic agents as possible. Intermittently monitor renal function. (4) Hyponatremia Current Visit: Yes Status: Acute (5) Hypomagnesemia Current Visit: Yes Status: Acute Assessment and plan: monitor and replace PRN (6) HTN (hypertension) Current Visit: No Status: Chronic Assessment and plan: per hx however she has been hypotensive. manage as described above. Qualifiers: Hypertension type: essential hypertension Qualified Code(s): I10 - Essential (primary) hypertension (7) Tobacco dependence Current Visit: Yes Status: Chronic Assessment and plan: Current smoker; cessation advised. (8) Anemia Current Visit: Yes Status: Chronic Assessment and plan: HGB level stable, no signs of bleeding. Monitor Qualifiers: Anemia type: unspecified type Qualified Code(s): D64.9 - Anemia, unspecified (9) GERD (gastroesophageal reflux disease) Current Visit: No Status: Chronic Assessment and plan: Continue PPI Qualifiers: Esophagitis presence: esophagitis presence not specified Qualified Code(s) : K21.9 - Gastro-esophageal reflux disease without esophagitis (10) Anxiety disorder Current Visit: Yes Status: Acute Assessment and plan: per hx. Cont home xanax but PRN only due to lethargy Qualifiers: Anxiety disorder type: unspecified anxiety disorder Qualified Code(s): F41.9 - Anxiety disorder, unspecified (11) Carotid stenosis, bilateral Current Visit: Yes Status: Chronic Assessment and plan: carotid ultrasound on 02/05/18 revealed severe 60-79% right distal carotid stenosis and moderate 40-59% proximal left carotid stenosis. Evaluated by Dr. Aggarwal who recommended no acute intervention at that time. Repeat carotid ultrasound essentially unchanged. (12) CVA (cerebral vascular accident) Current Visit: Yes Status: Acute Assessment and plan: presented after a syncopal event with collapse, recurrent falls and confusion. No known history of CVA. Head CT nonacute. Brain MRI with remote hemorrhagic infarct within the right basal ganglia, no evidence of acute infarct or ischemia. continue asa. Qualifiers: CVA mechanism: unspecified Qualified Code(s): I63.9 - Cerebral infarction, unspecified (13) DVT prophylaxis Current Visit: Yes Status: Acute - Time Spent With Patient Total time spent is greater than 50% in coordination of care (as documented) at patient's floor/unit and/or counseling patient: - Subjective Interval history: Pt still having occasional lightheadedness when change body position. - Constitutional Vitals: Temp Pulse Resp BP Pulse Ox 97.6 F 85 16 145/82 97 09/10/17 15:59 09/10/17 15:59 09/10/17 15:59 09/10/17 15:59 09/10/17 15:59 General appearance: Present: cooperative, A&O X 3, no acute distress Exam: PHYSICAL EXAMINATION: GENERAL APPEARANCE: The patient is alert, oriented and in no acute distress. HEENT: Head is normocephalic. The sinuses are nontender. Pupils are equal and reactive. The nares are patent. Oropharynx clear without lesions. NECK: Supple without lymphadenopathy. HEART: Regular rate and rhythm. LUNGS: No crackles or wheezes are heard. ABDOMEN: Soft, nontender, nondistended with good bowel sounds heard. Inguinal area is normal. EXTREMITIES: Without cyanosis, clubbing or edema. NEUROLOGICAL: Gross nonfocal. SKIN: Warm and dry without any rash. Internal Medicine: Result - Labs CBC & Chem 7: 09/10/17 04:25 09/10/17 04:25 Labs: Short CBC 09/10/17 Range/Units 04:25 WBC 6.8 (4.3-11.1) K/mcL Hgb 10.9 L (11.5-15.4) g/dL Hct 32.1 L (35.3-44.9) % Plt Count 337 (140-400) K/mcL BMP 09/10/17 04:25 Sodium 139 Potassium 3.3 L Chloride 105 Carbon Dioxide 27 BUN 10 Creatinine 0.54 L Glucose 86 Calcium 9.1 - ABG Interpretation ABG results: PT/INR, D-dimer PT 11.6 Seconds (9.4-12.1) 09/09/17 05:38 Consult Discharge Plan - Plan Referrals: NONE,PCP [Primary Care Provider] -
[2017-09-10] MEDS: Nicotine 7 MG PATCH.TD24 TD SCH (20:34)
[2017-09-10] MEDS ORDERED: NON-FORMULARY MEDICATION 1 EACH EACH (Enalapril/Hydrochlorothiazide [Enalapril-Hctz 5-12.5 PO SCH (21:00)
[2017-09-11 04:41] LABS: Basophils # 0.1 K/mcL (0.0-0.2); Basophils % 0.8 %; Eosinophils # 0.3 K/mcL (0.0-0.6); Eosinophils % 4.2 %; Hematocrit 34.3 % (35.3-44.9); Hemoglobin 11.7 g/dL (11.5-15.4); Immature Granulocytes % 0.6 % (0-4); Lymphocytes % 28.6 %; Mean Corpuscular HGB Conc 34.1 g/dL (31.6-35.5); Mean Corpuscular Hemoglobin 30.9 pg (28.0-33.3); Mean Corpuscular Volume 90.5 fL (83.0-100.0); Mean Platelet Volume 9.1 fL (9.4-12.4); Monocytes # 0.7 K/mcL (0.0-1.3); Monocytes % 9.7 %; Platelet Count 361 K/mcL (140-400); Red Blood Count 3.79 M/mcL (3.82-4.97); Red Cell Distribution Width 13.1 % (11.5-14.5); Segmented Neutrophils % 56.1 %
[2017-09-11 04:46] LABS: BUN/Creatinine Ratio 12 (6-26); Blood Urea Nitrogen 6 mg/dL (6-20); Calcium 9.3 mg/dL (8.6-10.3); Carbon Dioxide 25 mEq/L (23-29); Chloride 101 mEq/L (98-107); Glucose 80 mg/dL (70-105); Osmolality,Calculated 281 (280-300); Potassium 3.4 mEq/L (3.5-5.1); Sodium 137 mEq/L (136-145); eGFR For Non-African Americans > 60 (> 60)
[2017-09-11] MEDS ORDERED: *HR* Enoxaparin 40 MG/0.4 ML SYRINGE SQ SCH (06:00)
[2017-09-11 07:55] VITALS: BP 134/86
[2017-09-11] MEDS: Aspirin Enteric Coated 81 MG Tablet PO SCH (08:05)
[2017-09-11] MEDS: ALPRAZolam 1 MG TABLET PO PRN (08:14)
[2017-09-11] MEDS ORDERED: hydroCHLOROthiazide 25 MG TABLET PO SCH (09:00)
--- NOTE | 2017-09-11 09:46 | Discharge Summary ---
- NOTES TO OUTPATIENT PROVIDER Notes to Outpatient Provider: no PCP encouraged to seek and obtain a PCP . Orders not resulted at time of discharge: Pending orders 09/09/17 00:11 Occult Blood,Stool [BF] Routine 09/12/17 04:00 BMP [Basic Metabolic Panel] AM 0400 Complete Blood Count w/o Diff [HEME] AM 04009/13/17 04:00 BMP [Basic Metabolic Panel] AM 0400 Complete Blood Count w/o Diff [HEME] AM 04009/14/17 04:00 BMP [Basic Metabolic Panel] AM 0400 Complete Blood Count w/o Diff [HEME] AM 0400 Date of Encounter: 09/11/17 Time of Encounter: 09:46 - Discharge Diagnosis (1) Syncope Priority: Primary Status: Resolved Assessment and Plan: presented from home s/p syncopal episode. Patient reports frequent falls with residual confusion over the last 4-6 weeks. Further workup including CXR, shoulder XR and cervical XR showed no fracture. MRI brain no acute CVA but revealed old hemorrhagic stroke at basal ganglia. Orthostatic BP is positive. - TSH, free cortisol and Vit B12 all normal. - Given syncope occurs when she changed body position: from laying to sitting or standing, positive orthostatic BP, orthostatic hypotension seems to be the culprit. She was hypotensive upon admission. Home BP meds were on hold. BP now normal, we will resume ACEI, but continue to hold HCTZ and BB. - Pt was instructed to increase water and salt intake. To continue home medications which patient states that she has. Discussed with patient risk factors for CVA and IA in encouraged to quit smoking as well as to follow-up with a primary care provider as she does not have one. Instructed to rise from a lying position to sitting position slowly to resolve any dizziness that might be occurring at home. Qualifiers: Syncope type: unspecified Qualified Code(s): R55 - Syncope and collapse (2) Hypokalemia Priority: Secondary Status: Resolved Assessment and Plan: Hypokalemia has resolved back to her baseline of potassium at 3.4 L today. GFR remains stable at baseline of greater than 60 sodium is normal a137 BUN is 6 (3) Acute kidney injury Priority: Secondary Status: Resolved (4) Hyponatremia Priority: Secondary Status: Resolved (5) Hypomagnesemia Priority: Secondary Status: Resolved (6) HTN (hypertension) Priority: Secondary Status: Chronic Qualifiers: Hypertension type: essential hypertension Qualified Code(s): I10 - Essential (primary) hypertension (7) Tobacco dependence Priority: Secondary Status: Chronic Assessment and Plan: Patient is After discussion of risk factors for cardiovascular disease and stroke to attempt to quit smoking and smoking sensation. We will send him on nicotine patch 21 mg daily, 6 weeks and she is encouraged to follow up with primary care stepdown dosing to 14 mg 4 weeks and then 7 mg 2 weeks. Smoking cessation counseling was greater than 10 minutes (8) Anemia Priority: Secondary Status: Chronic Assessment and Plan: Hemoglobin today on 728 was 11.7 and normal crit was slightly low at 34.3 Qualifiers: Anemia type: unspecified type Qualified Code(s): D64.9 - Anemia, unspecified (9) GERD (gastroesophageal reflux disease) Priority: Secondary Status: Chronic Assessment and Plan: We will continue with home medications. Omeprazole 40 mg twice daily before meals Qualifiers: Esophagitis presence: esophagitis presence not specified Qualified Code(s) : K21.9 - Gastro-esophageal reflux disease without esophagitis (10) Anxiety disorder Priority: Secondary Status: Chronic Assessment and Plan: We will continue with her medication of as zoloft 200 mg and advised to follow- up with primary care provider or psychiatrist Qualifiers: Anxiety disorder type: generalized anxiety disorder Qualified Code(s): F41.1 - Generalized anxiety disorder (11) Carotid stenosis, bilateral Priority: Secondary Status: Chronic Assessment and Plan: Carotid Doppler on 725 results shows that she has a 40-59% stenosis of the mid ICA of the right CCA on the left ICA proximal she has non stenotic plaque. Cardiovascular consult was reviewed and nonsurgical treatment is recommended at this time (12) CVA (cerebral vascular accident) Priority: Secondary Status: Chronic Assessment and Plan: presented after a syncopal event with collapse, recurrent falls and confusion. No known history of CVA. Head CT nonacute. Brain MRI with remote hemorrhagic infarct within the right basal ganglia, no evidence of acute infarct or ischemia. continue asa. Qualifiers: CVA mechanism: stenosis Precerebral and cerebral artery: middle cerebral artery Laterality of affected vessel: right Qualified Code(s): I63.511 - Cerebral infarction due to unspecified occlusion or stenosis of right middle cerebral artery (13) DVT prophylaxis Priority: Secondary Status: Acute Hospital course: Ms. Torres is a 57 year old female who injured yesterday emergency room for chief complaints of syncope and frequent falls over the past 4-6 weeks workup through the emergency room included chest x-ray shoulder x-ray and cervical x- ray which were all normal showed no fractures or acute injuries MRI of the brain showed no acute CVA and old hemorrhagic stroke at the basal ganglia was noted she stated that she had been in hospital for same symptoms in January 2017 TSH free cortisol and vitamin B12 were all normal pre syncope consistent with a positional change from lying to sitting or standing some orthostatic blood pressure is resolved at this time. She was hypotensive upon admission and her postural hypotension has resolved and she has normalized. She was further diagnosed with hyponatremia hypomagnesemia and hypokalemia which have resolved. Head CT for CVA. Brain MRI showed a hemorrhagic infarct evidence of an acute infarct or ischemia, we will have her continue with her aspirin at home. Patient continues to have nicotine addiction we did discuss smoking cessation greater than 10 minutes and she is willing to try the NicoDerm patch as starting at 21 mg per day as she smokes 1-2 packs per day. She has been advised to decrease her nicotine patch after 6 weeks to 14 mg 4 weeks and then a further decrease of 7 mg 2 weeks. Chronic history of anemia upon discharge she house red blood cells 3.79 hemoglobin is normal at 11.7 with a slightly low crit of 20. Upon admission patient was positive for opiates as well as benzodiazepines and cocaine. Her current home medications did include a benzodiazepine and a cough syrup with codeine. She did deny use of cocaine and states that she" has no idea " how that was positive. Today we are discharging this noted in a stable condition to home, she is encouraged to obtain a primary care provider. Discharge discussed with: patient Time spent discussing smoking cessation with patient: more than 10 minutes - Time Spent with Patient Total time spent providing and/or coordinating discharge services: - Discharge Medications Home Medications: Atenolol [Tenormin] 50 mg PO BID 01/27/17 [History] Enalapril/Hydrochlorothiazide [Enalapril-Hctz 5-12.5 mg Tab] 1 tab PO BID [History] Lidocaine Patch [Lidoderm 5% patch] 1 patch TP DAILY PRN 01/27/17 [History] Omeprazole [PriLOSEC] 40 mg PO BID 01/27/17 [History] Sertraline [Zoloft] 200 mg PO DAILY 01/27/17 [History] Aspirin [Lo-Dose Aspirin EC] 81 mg PO DAILY #30 tablet. 02/06/17 [Rx] Cyclobenzaprine [Flexeril] 10 PO TID PRN 09/10/17 [History] Nicotine Patch [Nicoderm] 21 mg TD DAILY #45 patch.[id number] 09/11/17 [Rx] Allergies/Adverse Reactions: 3 Allergy/AdvReac Type Severity Reaction Status Date / Time hydrocodone [From Vicodin] AdvReac Itching Verified 09/08/17 19:30 Oxycodone [From Percocet] AdvReac Itching Verified 09/08/17 19:30 Date of admission: 09/08/17 22:13 Primary care physician: PCP NONE Consults: 09/08/17 23:11 Consult to Physical Therapy [CONS] Routine Comment: Evaluate, develop and implement POC Reason for Consult: weakness Does patient have active BEDREST order?: No Is patient medically & hemodynamically stable?: Yes Patient assessed for mobility or mobilized this visit?: No 09/09/17 09:11 Consult to Vascular Surgery [CONS] Routine Consulting Provider: V[facility] [place] Reason for Consult: syncope; hx carotid stenosis Call Completed: Yes Discharging clinician: Nika Casey Anticipated date of discharge: 09/11/17 - Constitutional Vitals: Temp Pulse Resp BP Pulse Ox 98.0 F 93 17 134/86 94 09/11/17 07:54 09/11/17 07:54 09/11/17 07:54 09/11/17 07:54 09/11/17 07:54 General appearance: Present: cooperative, A&O X 3, no acute distress - Head Head exam: Present: atraumatic - Eye Eye exam: Present: EOMI, PERRL - ENT ENT exam: Present: mucous membranes moist - Neck Neck exam general surgery: Present: full ROM - Respiratory Respiratory exam: Present: CTAB - Cardiovascular Cardiovascular exam: Present: RRR - GI/Abdominal GI/Abdominal exam: Present: normal bowel sounds, soft - Extremities Exam Extremities exam: Present: full ROM, normal capillary refill, normal inspection , radial pulses palpable and symmetrical - Neurological Exam Neurological exam: Present: alert, CN II-XII intact, normal gait, oriented X3, reflexes normal, no focal deficits, strengths equal and symetr throughout - Patient Status Disposition: Home, Self-Care Condition: Good Functional capacity at discharge: independent ambulation Overall status at discharge: patient is back to baseline - Discharge Instructions Instructions: Syncope (DC), Anemia (GEN) Follow Up With: NONE,PCP [Primary Care Provider] - Additional Instructions: encouraged to quit smoking and seek health care from a PCP - Diet and Activity Activity: resume usual activities as tolerated Diet: low fat, low cholesterol
[2017-09-12] MEDS ORDERED: Nicotine 21 MG PATCH.TD24 TD SCH ×2 (09:00)
== END 2017-09-11 10:53 | disposition home or self-care (01) ==
LOC: 2SOUTHHOLD 19:23 → EMEROO 19:23 → 2SOUTHHOLD 22:59 → 3BNU 09-09 17:43
PROVIDERS: ADMIT Family Medicine; ATTEND Family Medicine